=== PATIENT | female | born 1990 | race Caucasian/White ===

== ENCOUNTER 2018-11-21 17:09 | Emergency (ER) | payer OTHER, SELFPAY ==
[2018-11-21 17:12] VITALS: BP 140/92; PULSE 119; RESP 17; TEMP 37.2; O2SAT 99
--- NOTE | 2018-11-21 17:15 | ED.MEDCLEAR ---
HPI - Medical Clearance General Chief complaint: Shortness of Breath/Dyspnea Stated complaint: replace inhaler,out of medication Time Seen by Provider: 11/21/18 17:10 Source: patient Mode of arrival: ambulatory Limitations: no limitations History of Present Illness HPI Narrative: 28-year-old female former smoker with history of asthma presents to the emergency department because she took her last puff of scheduled albuterol just prior to arrival and she has no other inhalers. She does not have a local doctor and wants a refill. She denies any ongoing symptoms. She has no fever no chills wheezing or other symptoms. Reason for Medical Clearance: medical condition Compliant with Home Medications: Yes Associated Symptoms: denies other symptoms Treatments Prior to Arrival: none Home Medications Medication Instructions Recorded Confirmed Fexofenadine Hydrochloride 30 mg PO QDAY #0 03/06/13 (JUAQUIN~) albuterol sulfate [Ventolin HFA] #0 11/13/17 Previous Rx's Medication Instructions Recorded albuterol sulfate [Ventolin HFA] 0 puff INH Q4HP PRN #1 ea 11/14/17 prednisone 40 mg PO Q DAY 4 Days #0 tab 11/14/17 albuterol sulfate 1 puff INHALATION Q4-6H PRN #8 gram 11/21/18 Allergies Allergy/AdvReac Type Severity Reaction Status Date / Time [place] And Derivatives Allergy Unknown Unverified 11/19/17 12:25 [CITRUS AND DERIVATIVES] peanut [PEANUT] Allergy Unknown Unverified 11/19/17 12:25 Review of Systems Constitutional Denies chills, Denies fever(s), Denies lethargy and Denies weakness Eyes Denies change in vision, Denies eye discharge, Denies irritation and Denies loss of vision ENT Ears, Nose, Mouth, and Throat: Denies change in voice, Denies neck pain and Denies sore throat Cardiovascular Denies chest pain, Denies irregular heart rhythm, Denies lightheadedness, Denies palpitations, Denies dyspnea, Denies dyspnea on exertion and Denies orthopnea Respiratory Denies cough, Denies dyspnea, Denies dyspnea on exertion and Denies wheezing Gastrointestinal Gastrointestinal: Denies abdominal pain, Denies change in bowel habits, Denies diarrhea, Denies nausea and Denies vomiting Genitourinary Denies hematuria, Denies flank pain, Denies urinary incontinence and Denies urinary urgency Musculoskeletal Denies neck pain Integumentary/Breasts Denies pruritus, Denies erythema, Denies rash and Denies wounds Neurologic Denies confusion, Denies loss of vision and Denies weakness Psychiatric Denies anxiety, Denies confusion, Denies depression, Denies homicidal ideation and Denies suicidal ideation Endocrine Denies palpitations Hematologic/Lymphatic Denies easy bruising Allergic/Immunologic Denies wheezing PFSH Social History Smoking Status: Never smoker Social History Smoking Status: Never smoker Exam Narrative Exam Narrative: GEN: AOx3 and in mild distress EYES: Pupils are equal, round, and reactive to light and accommodation. Extraoccular muscles are intact bilaterally. There is no subconjunctival hemorrhage or exudate. CHEST: Lungs are clear to auscultation bilaterally and free of wheezes, rales, or rhonchi. Heart rate is regular rhythm, there are no murmurs, clicks, rubs, or gallops. There is no chest wall tenderness. ABD: Abdomen is soft and nontender. There is no guarding or rebound. Bowel sounds are normal in all 4 quadrants. There is no mass or organomegaly. EXT: Full painless ROM of all extremities with no loss of sensation or strength. SKIN: Warm, pink, and dry. No erythema or rash Initial Vital Signs Initial Vital Signs: Vital Signs Temperature 99 F 11/21/18 17:12 Pulse Rate 119 H 11/21/18 17:12 Respiratory Rate 17 11/21/18 17:12 Blood Pressure 140/92 H 11/21/18 17:12 Pulse Oximetry 99 11/21/18 17:12 Discharge Plan Departure Patient Disposition: Home Clinical Impression: Encounter for medication refill, Asthma Discharge Date/Time: 11/21/18 17:20 Interventions: ED Discharge Assessment Last Done: 11/21/18 17:20 Instructions: Asthma -- Adult Activity Restrictions/Additional Instructions: *You have been diagnosed with [medication refill, asthma ] *What to do: *Take medications as directed *Follow up with your primary care provider in 2-3 days, call for an appointment. Let them know you were seen in the Emergency Department and that we ask that you be seen in follow up *Return to ER if you should have any new, worsening or concerning symptoms Prescriptions: New albuterol sulfate 90 mcg/actuation HFA aerosol inhaler 1 puff INHALATION Q4-6H PRN (Reason: bronchospasm) Qty: 8 RF: 0 No Action Fexofenadine Hydrochloride (JUAQUIN~) 30 mg PO QDAY Qty: 0 RF: 0 albuterol sulfate [Ventolin HFA] 90 MCG/PUFF HFA aerosol inhaler Qty: 0 RF: 0 prednisone 20 MG tablet 40 mg PO Q DAY 4 Days Qty: 0 RF: 0 albuterol sulfate [Ventolin HFA] 90 MCG/PUFF HFA aerosol inhaler INH Q4HP PRNQty: 1 RF: 0
--- NOTE | 2018-11-21 17:31 | PC.NURSE ---
Defer to MD assessment
== END 2018-11-21 17:20 | disposition home or self-care (01) ==
LOC: ED 17:28
PROVIDERS: Emergency Provider Emergency Medicine
DX: J45.909 Unspecified asthma, uncomplicated (principal); Z76.0 Encounter for issue of repeat prescription
CPT/HCPCS: 99282; 99283

== ENCOUNTER 2020-01-18 18:00 | Emergency (ER) | payer OTHER, SELFPAY ==
[2020-01-18 18:06] VITALS: BP 128/88; PULSE 94; RESP 22; O2SAT 99
[2020-01-18] MEDS: ONDANSETRON 4 MG/2 ML INJ IV (18:58)
[2020-01-18] MEDS: PANTOPRAZOLE 40 MG VIAL IV (18:59)
[2020-01-18] MEDS: SODIUM CHLORIDE 0.9% 1,000 ML 1000 ML IV (18:59)
[2020-01-18 19:01] LABS: Add Manual Diff / Slide Review NO; Basophils Absolute Auto 0 /uL (0-100); Basophils Percent Auto 0.6 % (0-2); Eosinophils Absolute Auto 100 /uL (0-450); Eosinophils Percent Auto 2.8 % (2-4); Hematocrit 41.4 % (36-46); Hemoglobin 15.2 g/dL (12.0-16.0); Lymphocytes Absolute Auto 1400 /uL (1100-4500); Lymphocytes Percent Auto 25.9 % (25-40); Mean Corpuscular HGB Conc 36.7 % (30-36); Mean Corpuscular Hemoglobin 37.5 PG (26-34); Monocytes Absolute Auto 600 /uL (0-900); Monocytes Percent Auto 11.5 % (3-14); Neutrophils Absolute Auto 3200 /uL (1500-7000); Neutrophils Percent Auto 59.2 % (50-75); Platelet Count 162 X10^3/uL (150-400); Red Blood Cell Count 4.06 X10^6/uL (4.0-5.2); White Blood Cell Count 5.4 X10^3/uL (4.5-11.0)
[2020-01-18 19:09] LABS: Alanine Aminotransferase 85 IU/L (<35); Albumin 4.1 g/dL (3.5-5.0); Albumin Globulin Ratio 1.5 (1.0-2.8); Alkaline Phosphatase 84 U/L (38-126); Aspartate Aminotransferase 146 IU/L (14-36); BUN Creatinine Ratio 9.2 (6-22); Bilirubin Total 3.6 mg/dL (0.2-1.3); Blood Urea Nitrogen 8 mg/dL (7-17); Calcium 9.3 mg/dL (8.4-10.2); Carbon Dioxide 29 mmol/L (22-32); Chloride 98 mmol/L (98-107); Estimated Glomerular Filt Rate > 60.0 mL/min (>60); Globulin 2.7 g/dL (1.7-4.1); Glucose 99 mg/dL (70-100); HEMOLYSIS 15 (0-50); Lipase 74 U/L (23-300); Potassium 3.5 mmol/L (3.4-5.1); Sodium 134 mmol/L (137-145); Total Protein 6.8 g/dL (6.3-8.2)
--- NOTE | 2020-01-18 19:15 | DI.US.S_ITS ---
PROCEDURE: US ABDOMEN LIMITED INDICATIONS: ABNORMAL LFTS; N/V TECHNIQUE: Real-time scanning was performed of the abdominal and retroperitoneal organs, with image documentation. COMPARISON: None. FINDINGS: Liver: There is minimal prominence of the liver size. The liver demonstrates diffusely increased echotexture without focal abnormalities consistent with chronic hepatocellular disease/hepatic steatosis. Gallbladder: Gallbladder is normal in sonographic appearance without gallstones, gallbladder wall thickening, pericholecystic fluid, or abnormal sonographic Le's. Biliary ducts: Intrahepatic bile ducts are non-dilated. Extrahepatic bile duct caliber measures 3 mm. Normal is 6-7 mm or less in diameter, or 10 mm or less post-cholecystectomy. Miscellaneous: No free abdominal fluid. IMPRESSION: 1. The liver demonstrates diffusely increased echotexture without focal abnormalities consistent with chronic hepatocellular disease/hepatic steatosis. Findings may explain clinical history of elevated LFTs. 2. No sonographic evidence for acute cholecystitis or cholelithiasis. Dictated by: Willis Lin M.D. on 01/18/2020 at 21:05 Approved by: Willis Lin M.D. on 01/18/2020 at 21:08
[2020-01-18 20:00] VITALS: BP 128/83; PULSE 88; RESP 16; O2SAT 100
--- NOTE | 2020-01-18 20:16 | ED.NAVMDI ---
HPI - Nausea/Vomiting/Diarrhea <ARACELI Abbasi - Last Filed: 01/18/20 21:49> General Chief complaint: Nausea/Vomiting/Diarrhea Stated complaint: STOMACH PROBLEMS Time Seen by Provider: 01/18/20 18:10 Source: patient Mode of arrival: Ambulatory Limitations: no limitations History of Present Illness HPI Narrative: This is a 29-year-old female, nonsmoker, who presents to ED with significant other with chief complain of 3 day duration of nausea and vomiting with decreased oral intake. Patient reports no appetite and unable to keep it down solid foods or liquids due to nausea and vomiting with hot feeling in her stomach. Patient denies abdominal pain, blood in her vomit or stool, or dark stool. Patient states last vomit was 8:00 a.m. today and she had taken some Gatorade in the car on the way to ED. patient has history of ruptured esophagus from forceful vomiting in the past. Patient also reports some loose stool for last few days with dark green color. Reports about 5 loose stools in 24 hour period. She felt chills only after throwing up and occasional hot flashes and contributes this to her new medication Sertraline. Patient denies urinary symptoms. She states she smokes pot daily and drinks 3-4 alcohol beverages daily ([employer] hard cider) but does not use other recreational drugs. She is currently taking sertraline daily. 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 Patient denies chest pain, dizziness, breathing difficulty, short of breath, sore throat, rhinorrhea. Related Data Home Medications Medication Instructions Recorded Confirmed Fexofenadine Hydrochloride 30 mg PO QDAY #0 03/06/13 (JUAQUIN~) albuterol sulfate [Ventolin HFA] #0 11/13/17 Previous Rx's Medication Instructions Recorded albuterol sulfate [Ventolin HFA] 0 puff INH Q4HP PRN #1 ea 11/14/17 prednisone 40 mg PO Q DAY 4 Days #0 tab 11/14/17 albuterol sulfate 1 puff INHALATION Q4-6H PRN #8 gram 11/21/18 albuterol sulfate 2 inhalation INHALATION Q4-6H PRN 01/18/20 #1 each Allergies Allergy/AdvReac Type Severity Reaction Status Date / Time [place] And Derivatives Allergy Unknown Unverified 11/19/17 12:25 [CITRUS AND DERIVATIVES] peanut [PEANUT] Allergy Unknown Unverified 11/19/17 12:25 Review of Systems <ARACELI Abbasi - Last Filed: 01/18/20 21:49> Review of Systems Narrative: General: Denies fever, (+) hot flashes, (+) chills only after vomting, fatigue, malaise, sweats. HEENT: Denies sinus pain, ear pain, sore throat, difficulty swallowing, dizziness. Respiratory: Denies dyspnea, cough, wheezing, hemoptysis, sputum. Cardiovascular: Denies chest pain, palpitations, orthopnea, edema. Gastrointestinal: See HPI : Denies dysuria, frequency, incontinence, hematuria, urinary retention. Musculoskeletal: Denies weakness, joint pain or bony pain. Skin: Denies rash, skin lesions, or other. Neurologic: Denies weakness, headache, numbness, change in speech, confusion, seizures, incoordination. Psychiatric: No concerning psychosocial issues. 12-point review of systems is negative except for those stated above. Patient History <ARACELI Abbasi - Last Filed: 01/18/20 21:49> Social History Smoking Status: Never smoker Smoking Status: Never smoker alcohol intake frequency: 3 or more drinks per day Substance Use Type: marijuana Exam <ARACELI Abbasi - Last Filed: 01/18/20 21:49> Narrative Exam Narrative: GEN: Alert, oriented x 3, well appearing and nourished, and in no acute distress. Head: Normal cephalic, atraumatic. No scalp or temporal tenderness, palpable mass or rash. EYES: Pupils are equal, round, and reactive to light and accommodation. Extraocular muscles are intact bilaterally. There is no subconjunctival hemorrhage, exudate and sclera non-icteric. ENT: Bilateral auditory canals and tympanic membranes clear. Hearing grossly intact. Nose without bleeding, purulent discharge or deviation. Facial sinuses nontender to palpate. Mucous membrane moist, no mucosal lesion. Throat without erythema, tonsillar hypertrophy or exudate. Uvula in midline, airway patent. Neck: Trachea in midline. No JVD, non-tender without lymphadenopathy. No masses or thyroid megaly. Supple, non-tender and no meningeal signs. CARDIAC: Normal regular rate and rhythm without murmurs, gallops, or rubs. No chest wall tenderness. No peripheral edema, cyanosis or pallor. Capillary refill is less than 2 seconds. RESPIRATORY: Lungs are clear to auscultate bilaterally. No cough, wheezes, rales, or rhonchi. No stridor, respiratory distress, increase work of breathing, or accessary muscle used. ABD: Abdomen soft, nontender and non-distended. No guarding or rebound tenderness to palpate. Bowel sounds are normal in all 4 quadrants. There is no palpable masses or organomegaly. EXT: Full painless ROM of all extremities with no loss of sensation, strength, effusion or edema. SKIN: Warm, dry, normal color for patient. No erythema, lesions or rash over visible areas. BACK: Nontender without deformity or crepitance. No flank tenderness. NEUROLOGICAL: Alert and oriented to place, time and person. Sensation and motor function intact bilaterally. No facial droops, dysphasia. PSYCHIATRIC: Good judgement and reason, without hallucinations, abnormal affect or abnormal behaviors during the examination. Patient is not suicidal. Initial Vital Signs Initial Vital Signs: Vital Signs Pulse Rate 94 H 01/18/20 18:06 Respiratory Rate 22 01/18/20 18:06 Blood Pressure 128/88 01/18/20 18:06 Pulse Oximetry 99 01/18/20 18:06 <Carlitos Morales DO - Last Filed: 01/18/20 23:17> Initial Vital Signs Initial Vital Signs: Vital Signs Pulse Rate 94 H 01/18/20 18:06 Respiratory Rate 22 01/18/20 18:06 Blood Pressure 128/88 01/18/20 18:06 Pulse Oximetry 99 01/18/20 18:06 Scores <ARACELI Abbasi - Last Filed: 01/18/20 21:49> GCS [place] coma scale eye opening: Spontaneous [place] coma scale verbal response: Orientated [place] coma scale motor response: Obey commands [place] coma scale total score: 15 Course <ARACELI Abbasi - Last Filed: 01/18/20 21:49> Orders Ordered: ED Orders 01/18/20 18:52 Complete Blood Count AUTO DIFF Stat Comprehensive Metabolic Panel Stat Lipase Stat 01/18/20 19:15 US abdomen limited Stat Discontinued Medications Sodium Chloride (Normal Saline 0.9%) 1,000 mls @ 1,000 mls/hr IV BOLUS ONE Stop: 01/18/20 19:28 Last Infusion: 01/18/20 21:16 Dose: 0 mls/hr Documented by: Admin: 01/18/20 18:59 Dose: 1,000 mls/hr Documented by: CARLOS A Ondansetron HCl (Zofran) 4 mg IV NOW ONE Stop: 01/18/20 18:30 Last Admin: 01/18/20 18:58 Dose: 4 mg Documented by: CARLOS A Ondansetron HCl (Zofran Odt Prepack) 1 bottle MISC SEEINSTR ONE Stop: 01/18/20 21:25 Last Admin: 01/18/20 21:32 Dose: 1 bottle Documented by: MARYCHUY Pantoprazole Sodium (Protonix) 40 mg IV NOW ONE Stop: 01/18/20 18:30 Last Admin: 01/18/20 18:59 Dose: 40 mg Documented by: CARLOS A Vital Signs Vital signs: Vital Signs - 8 hr 01/18/20 18:06 01/18/20 20:00 Pulse Rate 94 H 88 Respiratory Rate 22 16 Blood Pressure 128/88 Blood Pressure [Left Arm] 128/83 Pulse Oximetry 99 100 <Carlitos Morales DO - Last Filed: 01/18/20 23:17> Orders Ordered: ED Orders 01/18/20 18:52 Complete Blood Count AUTO DIFF Stat Comprehensive Metabolic Panel Stat Lipase Stat 01/18/20 19:15 US abdomen limited Stat Discontinued Medications Sodium Chloride (Normal Saline 0.9%) 1,000 mls @ 1,000 mls/hr IV BOLUS ONE Stop: 01/18/20 19:28 Last Infusion: 01/18/20 21:16 Dose: 0 mls/hr Documented by: Admin: 01/18/20 18:59 Dose: 1,000 mls/hr Documented by: CARLOS A Ondansetron HCl (Zofran) 4 mg IV NOW ONE Stop: 01/18/20 18:30 Last Admin: 01/18/20 18:58 Dose: 4 mg Documented by: CARLOS A Ondansetron HCl (Zofran Odt Prepack) 1 bottle MISC SEEINSTR ONE Stop: 01/18/20 21:25 Last Admin: 01/18/20 21:32 Dose: 1 bottle Documented by: MARYCHUY Pantoprazole Sodium (Protonix) 40 mg IV NOW ONE Stop: 01/18/20 18:30 Last Admin: 01/18/20 18:59 Dose: 40 mg Documented by: CARLOS A Vital Signs Vital signs: Vital Signs - 8 hr 01/18/20 18:06 01/18/20 20:00 Pulse Rate 94 H 88 Respiratory Rate 22 16 Blood Pressure 128/88 Blood Pressure [Left Arm] 128/83 Pulse Oximetry 99 100 MDM - Nausea/Vomiting/Diarrhea <Lenny Samantha-ARACELI Campbell - Last Filed: 01/18/20 21:49> Differential Diagnosis Differential diagnosis: Likely gastroenteritis, dehydration and other (Covid 19, electrolytes imblance) Medical Records Attestation: I reviewed the patient's medical records. Lab Data Attestation: I reviewed the patient's lab results. Result diagrams: 01/18/20 18:52 01/18/20 18:52 Labs: Lab Results 01/18/20 01/18/20 Range/Units 18:52 18:52 WBC 5.4 (4.5-11.0) X10^3/uL RBC 4.06 (4.0-5.2) X10^6/uL Hgb 15.2 (12.0-16.0) g/dL Hct 41.4 (36-46) % MCV 102.0 H (80-100) fL MCH 37.5 H (26-34) PG MCHC 36.7 H (30-36) % RDW 13.0 (11.6-14.8) % Plt Count 162 (150-400) X10^3/uL Neut % (Auto) 59.2 (50-75) % Lymph % (Auto) 25.9 (25-40) % [place] % (Auto) 11.5 (3-14) % Eos % (Auto) 2.8 (2-4) % Baso % (Auto) 0.6 (0-2) % Neut # (Auto) 3200 (1287-4257) /uL Lymph # (Auto) 1400 (6111-1939) /uL [place] # (Auto) 600 (0-900) /uL Eos # (Auto) 100 (0-450) /uL Baso # (Auto) 0 (0-100) /uL Sodium 134 L (137-145) mmol/L Potassium 3.5 (3.4-5.1) mmol/L Chloride 98 (98-107) mmol/L Carbon Dioxide 29 (22-32) mmol/L BUN 8 (7-17) mg/dL Creatinine 0.87 (0.52-1.04) mg/dL Estimated GFR > 60.0 (>60) mL/min BUN/Creatinine Ratio 9.2 (6-22) Glucose 99 (70-100) mg/dL Calcium 9.3 (8.4-10.2) mg/dL Total Bilirubin 3.6 H (0.2-1.3) mg/dL AST 146 H (14-36) IU/L ALT 85 H (<35) IU/L Alkaline Phosphatase 84 (38-126) U/L Total Protein 6.8 (6.3-8.2) g/dL Albumin 4.1 (3.5-5.0) g/dL Globulin 2.7 (1.7-4.1) g/dL Albumin/Globulin Ratio 1.5 (1.0-2.8) Lipase 74 (23-300) U/L Point of Care Testing Test Results Negative Urine Dip Bedside Urine Glucose Negative Bedside Urine Bilirubin - Negative Bedside Urine Ketone - Negative Urine Specific [place] 1.010 Bedside Urine Occult Blood - Negative Bedside Urine pH 6.5 Bedside Urine Protein - Negative Bedside Urine Urobilinogen - Negative Bedside Urine Nitrite - Negative Bedside Urine Leukocytes - Negative Esterase Imaging Data US - abdomen: Radiologist's Impression: [address] [id number] Ultrasound Report Signed Patient: Rosemarie Crowder LMR#: [id number] : 1990Acct:[id number] Age/Sex: 29 FDate of Service: 01/18/20 Loc: ED Accession Number: [id number] Procedure: US abdomen limited Ordering Provider: Lenny Lombardi PROCEDURE: US ABDOMEN LIMITED INDICATIONS: ABNORMAL LFTS; N/V TECHNIQUE: Real-time scanning was performed of the abdominal and retroperitoneal organs, with image documentation. COMPARISON: None. FINDINGS: Liver: There is minimal prominence of the liver size. The liver demonstrates diffusely increased echotexture without focal abnormalities consistent with chronic hepatocellular disease/hepatic steatosis. Gallbladder: Gallbladder is normal in sonographic appearance without gallstones, gallbladder wall thickening, pericholecystic fluid, or abnormal sonographic Le's. Biliary ducts: Intrahepatic bile ducts are non-dilated. Extrahepatic bile duct caliber measures 3 mm. Normal is 6-7 mm or less in diameter, or 10 mm or less post-cholecystectomy. Miscellaneous: No free abdominal fluid. IMPRESSION: 1. The liver demonstrates diffusely increased echotexture without focal abnormalities consistent with chronic hepatocellular disease/hepatic steatosis. Findings may explain clinical history of elevated LFTs. 2. No sonographic evidence for acute cholecystitis or cholelithiasis. Dictated by: Willis Lin M.D. on 01/18/2020 at 21:05 Approved by: Willis Lin M.D. on 01/18/2020 at 21:08 MDM Narrative Medical decision making narrative: Patient was able to void after 1 L IV hydration and medicated with Zofran for nausea and vomiting. UA was negative for infection. Urine was negative. There is no leukocytosis. Mild hyponatremia of 134. Normal potassium of 3.5 and no signs of acute dehydration. However, total bilirubin was elevated to 3.6 from previous visit 2.2 in August 2017. AST 146 and ALT 85 which was also elevated from previous visit which were normal. Abdominal exam was unremarkable. Patient states she drinks alcohol beverages 3-4 servings per day. [place] US that diffusely increased echotexture without focal abnormalities which is consistent with hepatic steatosis or chronic hepatocellular disease. There is no evidence of acute cholecystitis or cholelithiasis. Patient advised to avoid fatty food or alcohol drinks and to follow-up with her primary care physician. Return precautions were discussed with patient and discharged to home with prepack Zofran for as needed use. Patient was able to tolerate ice chips without vomiting while in ED. Covid swab is pending and advised self quarantine until she receives a phone call from us with negative results. Work off note provided. Patient verbalized understanding and in agreement with the treatment plan. Patient requesting albuterol inhaler that she uses as as needed for asthma. The prescription has been transmitted to [facility] in [place]. <Carlitos Morales, - Last Filed: 01/18/20 23:17> Lab Data Labs: Lab Results 01/18/20 01/18/20 Range/Units 18:52 18:52 WBC 5.4 (4.5-11.0) X10^3/uL RBC 4.06 (4.0-5.2) X10^6/uL Hgb 15.2 (12.0-16.0) g/dL Hct 41.4 (36-46) % MCV 102.0 H (80-100) fL MCH 37.5 H (26-34) PG MCHC 36.7 H (30-36) % RDW 13.0 (11.6-14.8) % Plt Count 162 (150-400) X10^3/uL Neut % (Auto) 59.2 (50-75) % Lymph % (Auto) 25.9 (25-40) % [place] % (Auto) 11.5 (3-14) % Eos % (Auto) 2.8 (2-4) % Baso % (Auto) 0.6 (0-2) % Neut # (Auto) 3200 (0896-4575) /uL Lymph # (Auto) 1400 (8558-9055) /uL [place] # (Auto) 600 (0-900) /uL Eos # (Auto) 100 (0-450) /uL Baso # (Auto) 0 (0-100) /uL Sodium 134 L (137-145) mmol/L Potassium 3.5 (3.4-5.1) mmol/L Chloride 98 (98-107) mmol/L Carbon Dioxide 29 (22-32) mmol/L BUN 8 (7-17) mg/dL Creatinine 0.87 (0.52-1.04) mg/dL Estimated GFR > 60.0 (>60) mL/min BUN/Creatinine Ratio 9.2 (6-22) Glucose 99 (70-100) mg/dL Calcium 9.3 (8.4-10.2) mg/dL Total Bilirubin 3.6 H (0.2-1.3) mg/dL AST 146 H (14-36) IU/L ALT 85 H (<35) IU/L Alkaline Phosphatase 84 (38-126) U/L Total Protein 6.8 (6.3-8.2) g/dL Albumin 4.1 (3.5-5.0) g/dL Globulin 2.7 (1.7-4.1) g/dL Albumin/Globulin Ratio 1.5 (1.0-2.8) Lipase 74 (23-300) U/L Point of Care Testing Test Results Negative Urine Dip Bedside Urine Glucose Negative Bedside Urine Bilirubin - Negative Bedside Urine Ketone - Negative Urine Specific [place] 1.010 Bedside Urine Occult Blood - Negative Bedside Urine pH 6.5 Bedside Urine Protein - Negative Bedside Urine Urobilinogen - Negative Bedside Urine Nitrite - Negative Bedside Urine Leukocytes - Negative Esterase Discharge Plan Departure Patient Disposition: Home Clinical Impression: Elevated liver function tests, Elevated bilirubin, Fatty infiltration of liver, Medication refill Nausea & vomiting Qualifiers: Vomiting type: unspecified Vomiting Intractability: non-intractable Qualified Code(s): R11.2 - Nausea with vomiting, unspecified Discharge Date/Time: 01/18/20 21:40 Instructions: DI for Vomiting -- Adult, DI for Nonalcoholic Fatty Liver Disease Activity Restrictions/Additional Instructions: You have been diagnosed with [gastroenteritis with nausea/vomiting and loose stools. You will receive a phone call from us with Covid test result in 2-4 days. Until then, please self quarantine at home with good cough and hand hygiene. CBC test was unremarkable. Chemistry test was unremarkable. There was elevation in total bilirubin of 3.6 today with elevated liver function test of AST of 146 and ALT of 85. Abdominal ultrasound test indicates chronic hepatocellular disease/hepatic steatosis (fatty liver) without evidence of acute cholecystitis or cholelithiasis. Please avoid fatty food and alcohol beverages. Please follow-up with your primary care doctor for repeat test on days.]. What to do: *Take your medications as directed. You can take Zofran that has been provided to you as needed for nausea and vomiting. Please hydrate yourself bit smaller liquids frequently and advanced diet to bland when you are able to tolerate liquids for next 12-24 hours. *Follow up with your primary care provider in 2-3 days, call for an appointment. Let them know you were seen in the ED and that we asked you to be seen in follow up. *Return to ED if you have any new, worsening, or concerning symptoms, such as [chest/abdominal pain, breathing difficulty, unable to tolerate fluids, fever, blood in your vomit or stool, jaundice or any acute concerns]. Prescriptions: New albuterol sulfate 90 mcg/actuation aero powdr breath act w/sensor 2 inhalation INHALATION Q4-6H PRN (Reason: shortness of breath or wheezing) Qty: 1 RF: 0 No Action Fexofenadine Hydrochloride (JUAQUIN~) 30 mg PO QDAY Qty: 0 RF: 0 albuterol sulfate [Ventolin HFA] 90 MCG/PUFF HFA aerosol inhaler Qty: 0 RF: 0 prednisone 20 MG tablet 40 mg PO Q DAY 4 Days Qty: 0 RF: 0 albuterol sulfate [Ventolin HFA] 90 MCG/PUFF HFA aerosol inhaler 0 puff INH Q4HP PRNQty: 1 RF: 0 albuterol sulfate 90 mcg/actuation HFA aerosol inhaler 1 puff INHALATION Q4-6H PRN (Reason: bronchospasm) Qty: 8 RF: 0 Referrals: Sherley Morgan PA-C [Non-Staff] - Stand Alone Forms: Work Release Note <Carlitos Morales DO - Last Filed: 01/18/20 23:17> Cosign ED Attending Cosignature Attestation: I was immediately available in the department for consultation. This documentation has been reviewed and I agree with assessment and plan. Supervised by Carlitos Morales DO
[2020-01-18] MEDS: ONDANSETRON 4 MG ODT PREPACK 1 BOTTLE MISC (21:32)
[2020-01-19 23:32] LABS: COVID19 Sendout Not Detected (Not Detect)
== END 2020-01-18 21:40 | disposition home or self-care (01) ==
PROVIDERS: Emergency Provider Nurse Practitioner Family
DX: R79.89 Other specified abnormal findings of blood chemistry (principal); K76.0 Fatty (change of) liver, not elsewhere classified; Z76.0 Encounter for issue of repeat prescription; R11.2 Nausea with vomiting, unspecified
CPT/HCPCS: 36415; 76705; 80053; 81003; 81025; 83690; 85025; 87635; 96361; 96374; 96375; 99284; C9113; J2405

== ENCOUNTER 2021-02-04 13:22 | Emergency (ER) | payer OTHER, SELFPAY ==
[2021-02-04 13:31] VITALS: PULSE 81; RESP 20; TEMP 36.5; O2SAT 100
[2021-02-04 13:33] VITALS: BP 133/77
[2021-02-04 16:34] LABS: Bacteria Urine None Seen; RBC Urine None Seen (0-5/HPF)
--- NOTE | 2021-02-04 16:39 | PC.NURSE ---
couple days of right lower back pain. Worse with movement, bending. Patient works for [employer] lots of repetitive lifting. Denies urinary symptoms, denies loss of bowel or bladder function. No tingling down legs. Reports decrease appetite think from the heat
[2021-02-04 16:52] LABS: Amorphous Sediment Urine 1+; Calcium Oxalate Crystals Urine Many; Culture Indicated Urine Cult Not Indicated; Mucus Urine 1+ (Negative); Squamous Epithelial Cell Urine 0-1 /HPF (0-5/HPF); WBC Urine 0-1/HPF (0-5/HPF)
--- NOTE | 2021-02-04 18:30 | ED.BACK ---
HPI - Back Pain/Injury General Chief Complaint: Back Pain/Injury Stated Complaint: back pain Time Seen by Provider: 02/04/21 18:02 Source: patient Mode of arrival: Ambulatory Limitations: no limitations History of Present Illness HPI Narrative: Patient is a 30-year-old female here for evaluation right lower back discomfort. Stated that it started a couple days ago after a period of time at work where she was lifting and twisting heavy objects. There is no one specific incident that caused her symptoms to occur. It is worse with movement somewhat worse with palpation. Related Data Home Medications Medication Instructions Recorded Confirmed Fexofenadine Hydrochloride 30 mg PO QDAY #0 03/06/13 (JUAQUIN~) albuterol sulfate [Ventolin HFA] #0 11/13/17 Previous Rx's Medication Instructions Recorded albuterol sulfate [Ventolin HFA] 0 puff INH Q4HP PRN #1 ea 11/14/17 prednisone 40 mg PO Q DAY 4 Days #0 tab 11/14/17 albuterol sulfate 1 puff INHALATION Q4-6H PRN #8 gram 11/21/18 albuterol sulfate 2 inhalation INHALATION Q4-6H PRN 01/18/20 #1 each Allergies Allergy/AdvReac Type Severity Reaction Status Date / Time [place] And Derivatives Allergy Unknown Unverified 11/19/17 12:25 [CITRUS AND DERIVATIVES] peanut [PEANUT] Allergy Unknown Unverified 11/19/17 12:25 Review of Systems Constitutional Constitutional: Reports system reviewed and no additional complaints, except as documented Cardiovascular Cardiovascular: Reports system reviewed and no additional complaints, except as documented Respiratory Respiratory: Reports system reviewed and no additional complaints, except as documented Gastrointestinal Gastrointestinal: Reports system reviewed and no additional complaints, except as documented Genitourinary Genitourinary: Reports system reviewed and no additional complaints, except as documented Musculoskeletal Musculoskeletal: Reports back pain Integumentary/Breasts Skin/Breast: Reports system reviewed and no additional complaints, except as documented Neurologic Neurologic: Denies paresthesias Psychiatric Psychiatric: Reports system reviewed and no additional complaints, except as documented Hematologic/Lymphatic On Anticoagulants: No Allergic/Immunologic Allergic/Immunologic: Reports system reviewed and no additional complaints, except as documented Patient History Medical History Asthma exacerbation Upper GI bleeding Social History Smoking Status: Never smoker Smoking Status: Never smoker alcohol intake frequency: 0-2 drinks per day Substance Use Type: marijuana Exam Initial Vital Signs Initial Vital Signs: Vital Signs Temperature 97.7 F 02/04/21 13:31 Pulse Rate 81 02/04/21 13:31 Respiratory Rate 20 02/04/21 13:31 Pulse Oximetry 100 02/04/21 13:31 Const General: cooperative and comfortable Limitations: mental status not altered HENMT Head: normal to inspection and normocephalic Resp Effort & Inspection: normal respiratory effort Cardio Rate: regular rate Back/Spine/Pelvis Thoracic/Lumbar Spine: paraspinal tenderness ( Right-sided lumbar), No thoracic spinal tenderness and No lumbar spinal tenderness Skin Lesions: no lesions Rashes: no rashes Neuro General: patient alert and patient awake Cognition: normal cognition Speech: speech normal Extrem General: capillary refill normal Psych Appearance: grossly normal and well kempt Course Orders Ordered: Discontinued Medications Ketorolac Tromethamine (Ketorolac 30 Mg/Ml Vial) 30 mg IM NOW ONE Stop: 02/04/21 18:31 Last Admin: 02/04/21 18:39 Dose: 30 mg Documented by: BTONER Vital Signs Vital signs: Vital Signs - 8 hr 02/04/21 18:57 Pulse Rate 81 Respiratory Rate 16 Blood Pressure 127/73 Pulse Oximetry 99 MDM - Back Pain/Injury Lab Data Attestation: I reviewed the patient's lab results. Labs: Lab Results 02/04/21 Range/Units 16:30 Urine RBC None seen (0-5/HPF) Urine WBC 0-1/hpf (0-5/HPF) Ur Squamous Epith Cells 0-1 /hpf (0-5/HPF) Calcium Oxalate Crystal Many H Amorphous Sediment 1+ Urine Bacteria None seen (None) Urine Mucus 1+ H (Negative) Ur Culture Indicated? Cult not indicated Urine Dip Bedside Urine Glucose Negative Bedside Urine Bilirubin + 1 Bedside Urine Ketone - Negative Urine Specific [place] 1.030 Bedside Urine Occult Blood - Negative Bedside Urine pH 6.0 Bedside Urine Protein +/- 15 Bedside Urine Urobilinogen +/- 1mg Bedside Urine Nitrite - Negative Bedside Urine Leukocytes - Negative Esterase MDM Narrative Medical decision making narrative: symptoms today are consistent with musculoskeletal paraspinal right-sided lower back discomfort. I do suspect that is related to the movement of heavy objects while at work. No indication for radiologic studies. No indication for surgical consultation. Will treat symptomatically. She was given return precautions. She expressed understanding and agreement. Discharge Plan Departure Patient Disposition: Home Clinical Impression: Back pain Instructions: DI for Low Back Pain Activity Restrictions/Additional Instructions: recommend that you continue with anti-inflammatories such as Motrin or Naprosyn. You can also use Tylenol. You can also try heat in ice and massage. contact your primary provider for follow-up. Return to the emergency department for any new or worsening symptoms Prescriptions: No Action Fexofenadine Hydrochloride (JUAQUIN~) 30 mg PO QDAY Qty: 0 RF: 0 albuterol sulfate [Ventolin HFA] 90 MCG/PUFF HFA aerosol inhaler Qty: 0 RF: 0 prednisone 20 MG tablet 40 mg PO Q DAY 4 Days Qty: 0 RF: 0 albuterol sulfate [Ventolin HFA] 90 MCG/PUFF HFA aerosol inhaler 0 puff INH Q4HP PRNQty: 1 RF: 0 albuterol sulfate 90 mcg/actuation HFA aerosol inhaler 1 puff INHALATION Q4-6H PRN (Reason: bronchospasm) Qty: 8 RF: 0 albuterol sulfate 90 mcg/actuation aero powdr breath act w/sensor 2 inhalation INHALATION Q4-6H PRN (Reason: shortness of breath or wheezing) Qty: 1 RF: 0 Stand Alone Forms: Work Release Note
[2021-02-04] MEDS: KETOROLAC 30 MG/ML VIAL IM (18:39)
[2021-02-04 18:57] VITALS: BP 127/73; PULSE 81; RESP 16; O2SAT 99
== END 2021-02-04 18:57 | disposition home or self-care (01) ==
PROVIDERS: Emergency Medicine; Emergency Provider Emergency Medicine
DX: M54.5 Low back pain (principal)
CPT/HCPCS: 81003; 81015; 96372; 99283; J1885

== ENCOUNTER 2021-09-30 08:58 | Emergency (ER) | payer OTHER, SELFPAY ==
[2021-09-30] VITALS (7 sets, daily range): BP systolic 129–147; BP diastolic 77–85; PULSE 89–102; RESP 18–21; TEMP 36.4; O2SAT 98–99; BMI 21.6
--- NOTE | 2021-09-30 09:16 | DI.RAD.S_ITS ---
PROCEDURE: XR CHEST 1V INDICATIONS: Short of breath, wheezing TECHNIQUE: One view of the chest was acquired. COMPARISON: [facility], , CHEST 1 VIEW, 08/15/2017, 3:04. FINDINGS: Surgical changes and devices: None. Lungs and pleura: On this semiupright portable chest examination, no large pneumothorax or large pleural effusions are seen. No focal infiltrates are seen. Mediastinum: Mediastinal contours appear normal. Heart size is normal. Bones and chest wall: No suspicious bony lesions. Overlying soft tissues appear unremarkable. IMPRESSION: Portable chest within normal limits. Dictated by: Reginald Bowden M.D. on 09/30/2021 at 8:37 Approved by: Reginald Bowden M.D. on 09/30/2021 at 8:37
[2021-09-30 09:31] LABS: COVID19 -Nasal RAPID Negative (Negative)
--- NOTE | 2021-09-30 10:04 | ED_ITS ---
HPI - SOB/Dyspnea General Chief Complaint: Shortness of Breath/Dyspnea Stated Complaint: trouble breathing Time Seen by Provider: 09/30/21 09:37 Source: patient Mode of arrival: Ambulatory Limitations: no limitations History of Present Illness HPI Narrative: This is a 31-year-old female with known history of asthma who states that she has felt like she had a flare this morning. She did have her inhaler but she d id have a nebulizer she did treatment about 7:00 a.m. in the morning. She states she felt really anxious but it seems to have kicked in now in her shortness of breath, wheezing and tightness has resolved. She did not have any chest pain or pressure. No syncope. No nausea or vomiting. No new con stipation or diarrhea. No new swelling in her extremities. She does have seasonal allergies intense to have flares more frequently this time of year although it is a little early. She is supposed to be on an antihistamine. She is not on any daily steroids or steroid inhalers. She states she had an esophageal tear about 4 years ago from vomiting very forcefully and she took oral medication but did not require any other additional interventions. Patient denies any medication allergies. Occasional tobacco, occasional alcohol, she does dab but denies other illicit. Related Data Home Medications Medication Instructions Recorded Confirmed Fexofenadine Hydrochloride 30 mg PO QDAY #0 03/06/13 (JUAQUIN~) albuterol sulfate 90 mcg/actuation #0 11/13/17 aerosol inhaler (Ventolin HFA) Previous Rx's Medication Instructions Recorded albuterol sulfate 90 mcg/actuation 0 puff INH Q4HP PRN #1 ea 11/14/17 aerosol inhaler (Ventolin HFA) prednisone 20 mg tablet 40 mg PO Q DAY 4 Days #0 tab 11/14/17 albuterol sulfate 90 mcg/actuation 1 puff INHALATION Q4-6H PRN #8 gram 11/21/18 aerosol inhaler albuterol sulfate 90 mcg/actuation 2 inhalation INHALATION Q4-6H PRN 01/18/20 breath activated powder #1 each inhaler,sensor albuterol sulfate 90 mcg/actuation 2 puff INHALATION Q4-6H PRN #8.5 g 09/30/21 aerosol inhaler prednisone 20 mg tablet 40 mg PO DAILY #6 tab 09/30/21 Allergies Allergy/AdvReac Type Severity Reaction Status Date / Time [place] And Derivatives Allergy Unknown Unverified 11/19/17 12:25 [CITRUS AND DERIVATIVES] peanut [PEANUT] Allergy Unknown Unverified 11/19/17 12:25 Review of Systems Review of Systems ROS Unobtainable: All systems reviewed & are unremarkable except as noted in HPI and below Patient History Medical History Asthma exacerbation Upper GI bleeding Social History Smoking Status: Never smoker Smoking Status: Never smoker alcohol intake frequency: 0-2 drinks per day Substance Use Type: marijuana Exam Narrative Exam Narrative: GENERAL: Alert and oriented x three, female in mild distress. HEENT: Head normocephalic, atraumatic, EOMI, pupils reactive, face symmetric, moist mucous membranes NECK: Supple, full range of motion CARDIOVASCULAR: Mild tachycardia regular rate and rhythm without murmurs, rubs or gallops. RESPIRATORY: Breath sounds equal bilaterally, no wheezes rales or rhonchi. Ta chypnea accessory muscle use. Patient speaks in full sentences. ABDOMEN: Soft, nontender. Normoactive bowel sounds all 4 quadrants. No guarding or rebound, rigidity, no mass : No CVA tenderness. EXTREMITIES: Normal range of motion, no edema. Neurovascularly intact NEUROLOGICAL: Cranial nerves II through XII grossly intact. Moving all extremities. Normal gait. SKIN: Warm, dry, no petechiae, no rashes or lesions. Initial Vital Signs Initial Vital Signs: Vital Signs Temperature 97.5 F L 09/30/21 09:00 Pulse Rate 97 H 09/30/21 09:00 Respiratory Rate 18 09/30/21 09:00 Blood Pressure 138/85 09/30/21 09:00 Pulse Oximetry 99 09/30/21 09:00 Course Orders Ordered: ED Orders 09/30/21 09:00 COVID19 -Nasal swab/Pre-Proc Stat 09/30/21 09:13 EKG-12 Lead Stat Measure peak expiratory flow ONCE RT Consult Eval and Treat Now 09/30/21 09:16 XR chest 1V Stat 09/30/21 10:00 Complete Blood Count AUTO DIFF Stat Comprehensive Metabolic Panel Stat Lactate (Lactic Acid) Stat Discontinued Medications Methylprednisolone (Methylprednisolone 125 Mg/2 Ml Vial) 125 mg IV NOW ONE Stop: 09/30/21 10:10 Last Admin: 09/30/21 10:17 Dose: 125 mg Documented by: INOCENTE Reevaluation(s) Reevaluation #1: Patient continues to feel improved Vital Signs Vital signs: Vital Signs - 8 hr 09/30/21 09:00 09/30/21 09:05 09/30/21 09:30 Temperature 97.5 F L Pulse Rate 97 H 102 H 92 H Respiratory Rate 18 20 21 Blood Pressure 138/85 Pulse Oximetry 99 98 98 09/30/21 10:00 09/30/21 10:20 09/30/21 10:30 Temperature Pulse Rate 93 H 94 H 91 H Respiratory Rate 18 20 20 Blood Pressure 147/77 H 134/81 Pulse Oximetry 99 98 98 09/30/21 11:00 Temperature Pulse Rate 89 Respiratory Rate 20 Blood Pressure 129/80 Pulse Oximetry 98 MDM - SOB/Dyspnea Lab Data Result diagrams: 09/30/21 10:00 09/30/21 10:00 Labs: Lab Results 09/30/21 09/30/21 09/30/21 Range/Units 09:00 10:00 10:00 WBC 7.0 (4.5-11.0) X10^3/uL RBC 4.32 (4.0-5.2) X10^6/uL Hgb 15.0 (12.0-16.0) g/dL Hct 42.7 (36-46) % MCV 98.8 (80-100) fL MCH 34.7 H (26-34) PG MCHC 35.1 (30-36) % RDW 13.8 (11.6-14.8) % Plt Count 180 (150-400) X10^3/uL Neut % (Auto) 70.5 (50-75) % Lymph % (Auto) 16.5 L (25-40) % [place] % (Auto) 6.2 (3-14) % Eos % (Auto) 6.3 H (2-4) % Baso % (Auto) 0.5 (0-2) % Neut # (Auto) 4900 (9262-2845) /uL Lymph # (Auto) 1200 (4908-7911) /uL [place] # (Auto) 400 (0-900) /uL Eos # (Auto) 400 (0-450) /uL Baso # (Auto) 0 (0-100) /uL Sodium 138 (137-145) mmol/L Potassium 3.6 (3.4-5.1) mmol/L Chloride 103 (98-107) mmol/L Carbon Dioxide 28 (22-32) mmol/L BUN 7 (7-17) mg/dL Creatinine 0.71 (0.52-1.04) mg/dL Estimated GFR > 60.0 (>60) mL/min BUN/Creatinine Ratio 9.9 (6-22) Glucose 88 (70-100) mg/dL Lactate (0.7-2.1) mmol/L Calcium 9.2 (8.4-10.2) mg/dL Total Bilirubin 2.7 H (0.2-1.3) mg/dL AST 32 (14-36) IU/L ALT 20 (<35) IU/L Alkaline Phosphatase 90 (38-126) U/L Total Protein 7.7 (6.3-8.2) g/dL Albumin 4.7 (3.5-5.0) g/dL Globulin 3.0 (1.7-4.1) g/dL Albumin/Globulin Ratio 1.6 (1.0-2.8) SARS-CoV-2 (PCR) Negative (Negative) 09/30/21 Range/Units 10:00 WBC (4.5-11.0) X10^3/uL RBC (4.0-5.2) X10^6/uL Hgb (12.0-16.0) g/dL Hct (36-46) % MCV (80-100) fL MCH (26-34) PG MCHC (30-36) % RDW (11.6-14.8) % Plt Count (150-400) X10^3/uL Neut % (Auto) (50-75) % Lymph % (Auto) (25-40) % [place] % (Auto) (3-14) % Eos % (Auto) (2-4) % Baso % (Auto) (0-2) % Neut # (Auto) (2703-8905) /uL Lymph # (Auto) (5005-2468) /uL [place] # (Auto) (0-900) /uL Eos # (Auto) (0-450) /uL Baso # (Auto) (0-100) /uL Sodium (137-145) mmol/L Potassium (3.4-5.1) mmol/L Chloride (98-107) mmol/L Carbon Dioxide (22-32) mmol/L BUN (7-17) mg/dL Creatinine (0.52-1.04) mg/dL Estimated GFR (>60) mL/min BUN/Creatinine Ratio (6-22) Glucose (70-100) mg/dL Lactate 1.6 (0.7-2.1) mmol/L Calcium (8.4-10.2) mg/dL Total Bilirubin (0.2-1.3) mg/dL AST (14-36) IU/L ALT (<35) IU/L Alkaline Phosphatase (38-126) U/L Total Protein (6.3-8.2) g/dL Albumin (3.5-5.0) g/dL Globulin (1.7-4.1) g/dL Albumin/Globulin Ratio (1.0-2.8) SARS-CoV-2 (PCR) (Negative) Imaging Data Chest x-ray: Radiologist's Impression: [address] [address] XRay Report Signed Patient: Rosemarie Crowder MR#: [id number] : 1990 Acct:[id number] Age/Sex: 31 / F Date of Service: 09/30/21 Loc: Accession Number: [id number] ?? Procedure: XR chest 1V Ordering Provider: Abeba Webb D.O. PROCEDURE:? XR CHEST 1V ? INDICATIONS:? Short of breath, wheezing ? TECHNIQUE:? One view of the chest was acquired.? ? COMPARISON:? [facility], , CHEST 1 VIEW, 08/15/2017, 3:04. ? FINDINGS:? ? Surgical changes and devices:? None.? ? Lungs and pleura:? On this semiupright portable chest examination, no large pneumothorax or large pleural effusions are seen.? No focal infiltrates are seen.? ? Mediastinum:? Mediastinal contours appear normal.? Heart size is normal.? ? Bones and chest wall:? No suspicious bony lesions.? Overlying soft tissues appear unremarkable.? ? ? IMPRESSION:? ? Portable chest within normal limits. ? ? ? Dictated by: Reginald Bowden M.D. on 09/30/2021 at 8:37 ? ? Approved by: Reginald Bowden M.D. on 09/30/2021 at 8:37? ECG Data Attestation: I personally reviewed and interpreted this ECG as follows: Interpretation: Sinus rhythm rate 95 VT 162, QRS 072, QTC of 467. No acute ST changes noted. MDM Narrative Medical decision making narrative: This is a 31-year-old female comes in with increased shortness of breath she used an albuterol neb at home and seems to have improved after this. She is not wheezy or tight on exam her symptoms have almost completely resolved. Chest x- ray lab work COVID swab were negative. Patient had run out of her albuterol inhaler. She is not persistently on steroids or use a steroid inhaler. She does not have a spacer in this was provided as well as refill albuterol and a short course of oral steroid. She does live with animals that cause her to have allergies that makes her asthma flare, and she typically this time of year has worsening symptoms. Discharge Plan Departure Patient Disposition: Home Clinical Impression: Asthma with exacerbation Instructions: DI for Asthma -- Adult Activity Restrictions/Additional Instructions: Follow-up with physician for recheck. Take oral steroids until gone. Use albuterol 1-2 puffs every 4 hours as needed for wheezing or shortness of breath. Using a spacer will make this much more effective. [facility]cription sent to [facility]. Please return for fevers, increasing chest pain, shortness of breath, passing out, difficulty or work of breathing, wheezing, new swelling in her extremities or other new or concerning symptoms. Prescriptions: New albuterol sulfate 90 mcg/actuation HFA aerosol inhaler 2 puff inhalation Q4-6H PRN (Reason: shortness of breath or wheezing) Qty: 8.5 0RF prednisone 20 mg tablet 40 mg PO DAILY Qty: 6 0RF No Action Fexofenadine Hydrochloride (JUAQUIN~) 30 mg PO QDAY Qty: 0 0RF albuterol sulfate [Ventolin HFA] 90 MCG/PUFF HFA aerosol inhaler Qty: 0 0RF prednisone 20 MG tablet 40 mg PO Q DAY 4 Days Qty: 0 0RF albuterol sulfate [Ventolin HFA] 90 MCG/PUFF HFA aerosol inhaler 0 puff INH Q4HP PRNQty: 1 0RF albuterol sulfate 90 mcg/actuation HFA aerosol inhaler 1 puff INHALATION Q4-6H PRN (Reason: bronchospasm) Qty: 8 0RF albuterol sulfate 90 mcg/actuation aero powdr breath act w/sensor 2 inhalation INHALATION Q4-6H PRN (Reason: shortness of breath or wheezing) Qty: 1 0RF
[2021-09-30 10:10] LABS: Add Manual Diff / Slide Review NO; Basophils Absolute Auto 0 /uL (0-100); Basophils Percent Auto 0.5 % (0-2); Eosinophils Absolute Auto 400 /uL (0-450); Eosinophils Percent Auto 6.3 % (2-4); Hematocrit 42.7 % (36-46); Lymphocytes Absolute Auto 1200 /uL (1100-4500); Lymphocytes Percent Auto 16.5 % (25-40); Mean Corpuscular HGB Conc 35.1 % (30-36); Mean Corpuscular Hemoglobin 34.7 PG (26-34); Mean Corpuscular Volume 98.8 fL (80-100); Monocytes Absolute Auto 400 /uL (0-900); Monocytes Percent Auto 6.2 % (3-14); Neutrophils Absolute Auto 4900 /uL (1500-7000); Neutrophils Percent Auto 70.5 % (50-75); Platelet Count 180 X10^3/uL (150-400); Red Blood Cell Count 4.32 X10^6/uL (4.0-5.2); Red Cell Distribution Width 13.8 % (11.6-14.8)
[2021-09-30] MEDS: methylPREDNISolone 125 MG/2 ML VIAL IV (10:17)
[2021-09-30 10:23] LABS: Alanine Aminotransferase 20 IU/L (<35); Albumin 4.7 g/dL (3.5-5.0); Albumin Globulin Ratio 1.6 (1.0-2.8); Alkaline Phosphatase 90 U/L (38-126); Aspartate Aminotransferase 32 IU/L (14-36); BUN Creatinine Ratio 9.9 (6-22); Bilirubin Total 2.7 mg/dL (0.2-1.3); Blood Urea Nitrogen 7 mg/dL (7-17); Calcium 9.2 mg/dL (8.4-10.2); Carbon Dioxide 28 mmol/L (22-32); Chloride 103 mmol/L (98-107); Estimated Glomerular Filt Rate > 60.0 mL/min (>60); Glucose 88 mg/dL (70-100); HEMOLYSIS < 15 (0-50); Potassium 3.6 mmol/L (3.4-5.1); Sodium 138 mmol/L (137-145); Total Protein 7.7 g/dL (6.3-8.2)
[2021-09-30 10:24] LABS: Lactate (Lactic Acid) 1.6 mmol/L (0.7-2.1)
== END 2021-09-30 11:21 | disposition home or self-care (01) ==
PROVIDERS: Emergency Provider Emergency Medicine
DX: J45.901 Unspecified asthma with (acute) exacerbation (principal); R00.0 Tachycardia, unspecified; Z20.822 Contact with and (suspected) exposure to COVID-19
CPT/HCPCS: 36415; 71045; 80053; 83605; 85025; 87635; 93005; 99284; C9803; J2930

== ENCOUNTER 2021-10-22 18:14 | Emergency (ER) | payer SELFPAY ==
[2021-10-22] VITALS (8 sets, daily range): BP systolic 131–139; BP diastolic 79–91; PULSE 84–93; RESP 17; TEMP 36.6; O2SAT 96–99; BMI 19.8
--- NOTE | 2021-10-22 18:40 | DI.RAD.S_ITS ---
PROCEDURE: XR RIBS LT 2V INDICATIONS: injury TECHNIQUE: To views of the left ribs were acquired. COMPARISON: None. FINDINGS: Surgical changes and devices: None. Bones and chest wall: No fractures or dislocations. No suspicious bony lesions. Overlying soft tissues appear unremarkable. Lungs and pleura: The visualized lung appears clear. No pleural effusions or pneumothorax are visible. IMPRESSION: No acute finding. Dictated by: Madan Grajeda M.D. on 10/22/2021 at 19:39 Approved by: Madan Grajeda M.D. on 10/22/2021 at 19:39
--- NOTE | 2021-10-22 22:54 | ED.CHESTPAIN ---
HPI - Chest Pain General Chief Complaint: Chest Pain Stated Complaint: Pulled Muscle Between Rib and Boob Time Seen by Provider: 10/22/21 22:54 Source: patient Mode of arrival: Ambulatory Limitations: no limitations Limitations: no limitations History of Present Illness HPI narrative: This is a 31 old female who states she pulled a muscle between the ribs and the breast region. Patient states she has done this before several times. Usually last couple weeks. She has never come to the emergency department but has not typically had pain this intense. Patient states she works at [employer] she does a lot a lifting and moving. She thinks that she caused an injury while doing this. She has had increasing persistence and severity of pain on the left side of her chest just underneath the axilla and the lateral soft tissue of the breast. Movement makes it worse particularly rotation. Patient has not had any fevers or chills. No new cold cough or congestive symptoms. She states deep inhalation, coughing, sneezing and movement are exacerbating factors. She denies chest pain elsewhere. No nausea or vomiting. No other GI or urinary symptoms. No swelling in her extremities. She takes sertraline but no other daily medications. Patient is not . major surgeries besides soft vaginal surgery after she vomited too hard and had an injury to the esophagus 4 years ago. She is a nonsmoker, she does drink alcohol, she does use marijuana. Patient has tried ibuprofen at home with minimal improvement. Related Data Home Medications Medication Instructions Recorded Confirmed sertraline 50 mg tablet 50 mg PO DAILY 10/22/21 10/22/21 Previous Rx's Medication Instructions Recorded albuterol sulfate 90 mcg/actuation 1 puff INHALATION Q4-6H PRN #8 gram 11/21/18 aerosol inhaler diazepam 5 mg tablet (Valium) 5 mg PO TID PRN #10 tab 10/22/21 meloxicam 7.5 mg tablet 7.5 mg PO BID PRN #14 tab 10/22/21 Allergies Allergy/AdvReac Type Severity Reaction Status Date / Time Maxatawny And Derivatives Allergy Unknown Verified 10/22/21 18:39 [CITRUS AND DERIVATIVES] peanut [PEANUT] Allergy Unknown Verified 10/22/21 18:39 Review of Systems Review of Systems ROS Unobtainable: All systems reviewed & are unremarkable except as noted in HPI and below Patient History Medical History Asthma exacerbation Upper GI bleeding Social History Smoking Status: Never smoker Smoking Status: Never smoker alcohol intake frequency: 3 or more drinks per day Alcohol type: beer Substance Use Type: marijuana Exam Narrative Exam Narrative: GENERAL: Alert and oriented x three, female in moderate distress. HEENT: Head normocephalic, atraumatic, EOMI, pupils reactive, face symmetric, moist mucous membranes NECK: Supple, full range of motion CARDIOVASCULAR: Regular rate and rhythm without murmurs, rubs or gallops. Patient has reproducible chest pain in the left lateral chest just adjacent to the breast tissue. There is no mass, fluctuance, warmth or erythema. Patient does have tenderness over the soft tissue and muscle. There is no distinct bony point tenderness. RESPIRATORY: Breath sounds equal bilaterally, no wheezes rales or rhonchi. No tachypnea accessory muscle use. ABDOMEN: Soft, nontender. Normoactive bowel sounds all 4 quadrants. No guarding or rebound, rigidity, no mass : No CVA tenderness EXTREMITIES: Normal range of motion but patient is clearly more uncomfortable with rotation of the chest wall. No clubbing or edema. Neurovascularly intact NEUROLOGICAL: Cranial nerves II through XII grossly intact. Moving all extremities SKIN: Warm, dry, no petechiae, no rashes or lesions, no ecchymosis. No vesicles. Initial Vital Signs Initial Vital Signs: Vital Signs Temperature 98 F 10/22/21 18:35 Pulse Rate 89 10/22/21 18:35 Respiratory Rate 17 10/22/21 18:35 Blood Pressure 135/86 10/22/21 18:35 Pulse Oximetry 97 10/22/21 18:35 Course Orders Ordered: Discontinued Medications Diazepam (Diazepam 5 Mg Tablet) 5 mg PO NOW ONE Stop: 10/22/21 23:02 Last Admin: 10/22/21 23:07 Dose: 5 mg Documented by: KEILY Ketorolac Tromethamine (Ketorolac 30 Mg/Ml Vial) 30 mg IM NOW ONE Stop: 10/22/21 23:02 Last Admin: 10/22/21 23:07 Dose: 30 mg Documented by: KEILY Vital Signs Vital signs: Vital Signs - 8 hr 10/22/21 22:00 10/22/21 22:30 10/22/21 22:59 Pulse Rate 93 H 91 H Blood Pressure 137/80 131/91 H Pulse Oximetry 98 98 96 10/22/21 23:00 Pulse Rate Blood Pressure 139/80 Pulse Oximetry MDM - Chest Pain Imaging Data Chest x-ray: Radiologist's Impression: [address] [id number] XRay Report Signed Patient: Rosemarie Crowder MR#: [id number] : 1990 Acct:[id number] Age/Sex: 31 / F Date of Service: 10/22/21 Loc: ED Accession Number: [id number] ?? Procedure: XR ribs LT 2V Ordering Provider: Ruma Sanchez D.O. PROCEDURE:? XR RIBS LT 2V ? INDICATIONS:? injury ? TECHNIQUE:? To views of the left ribs were acquired.? ? COMPARISON:? None. ? FINDINGS:? ? Surgical changes and devices:? None.? ? Bones and chest wall:? No fractures or dislocations.? No suspicious bony lesions.? Overlying soft tissues appear unremarkable.? ? Lungs and pleura:? The visualized lung appears clear.? No pleural effusions or pneumothorax are visible.? ? IMPRESSION:? No acute finding. ? ? Dictated by: Madan Grajeda M.D. on 10/22/2021 at 19:39 ? ? Approved by: Madan Grajeda M.D. on 10/22/2021 at 19:39 [facility] Narrative Medical decision making narrative: This is a 31-year-old female comes with complaint of a pulled muscle. Patient has reproducible chest pain on exam consistent likely musculoskeletal cause. Chest x-ray does not show any acute structural changes, no infection. Patient exam findings and history are likely for coronary or embolic cause. Patient has improved in the past with NSAIDs. Given a dose of Toradol and muscle relaxer with plan for prescription for home. Return precautions discussed. Discharge Plan Departure Patient Disposition: Home Clinical Impression: Atypical chest pain Instructions: DI for Atypical Chest Pain Activity Restrictions/Additional Instructions: Follow-up with your physician for recheck. I believe your pain is musculoskeletal and will likely benefit from NSAIDs as well as some muscle relaxer. Decreased your activity as able, avoid twisting and heavy lifting activities. Prescription sent to [facility] in [place]. Please return for new or worsening chest pain, shortness of breath, passing out, fevers, coughing up blood, persistent vomiting, new skin changes, rashes or swelling at the site or other new or concerning symptoms. Prescriptions: New meloxicam 7.5 mg tablet 7.5 mg PO BID PRN (Reason: pain) Qty: 14 0RF diazepam [Valium] 5 mg tablet 5 mg PO TID PRN (Reason: muscle spasm) Qty: 10 0RF No Action albuterol sulfate 90 mcg/actuation HFA aerosol inhaler 1 puff INHALATION Q4-6H PRN (Reason: bronchospasm) Qty: 8 0RF sertraline 50 mg Tablet 50 mg PO DAILY 0RF Stand Alone Forms: Work Release Note
[2021-10-22] MEDS: diazePAM 5 MG TABLET PO (23:07)
[2021-10-22] MEDS: KETOROLAC 30 MG/ML VIAL IM (23:07)
== END 2021-10-22 23:21 | disposition home or self-care (01) ==
PROVIDERS: Emergency Provider Emergency Medicine
DX: R07.89 Other chest pain (principal)
CPT/HCPCS: 71100; 96372; 99283; 99284; J1885

== ENCOUNTER 2023-01-10 10:40 | Emergency (ER) | payer BC, SELFPAY ==
[2023-01-10] VITALS (8 sets, daily range): BP systolic 120–153; BP diastolic 77–95; PULSE 57–96; RESP 14–18; TEMP 36.8; O2SAT 97–100; BMI 19.8
--- NOTE | 2023-01-10 10:52 | DI.RAD.S_ITS ---
PROCEDURE: XR ABDOMEN MIN 2V INDICATIONS: vomiting 4 days, constipation TECHNIQUE: 2 views of the abdomen were acquired. COMPARISON: None. FINDINGS: Surgical changes and devices: None. Bowel: No pneumoperitoneum. The bowel gas pattern is normal. Soft tissues: No masses; visualized solid organ contours appear normal in size. No suspicious abdominal calcifications. Bones: No suspicious bony abnormalities. IMPRESSION: Nonobstructive bowel gas pattern. No significant stool load. Dictated by: Ramin Vilchis M.D. on 01/10/2023 at 11:27 Approved by: Ramin Vilchis M.D. on 01/10/2023 at 11:27
--- NOTE | 2023-01-10 10:53 | ED_ITS ---
HPI - Nausea/Vomiting/Diarrhea <Loyda Snow PA-C - Last Filed: 01/10/23 18:57> General Chief complaint: Nausea/Vomiting/Diarrhea Stated complaint: haven't been able to anything down T-4 Time Seen by Provider: 01/10/23 10:51 Source: patient Mode of arrival: Ambulatory History of Present Illness HPI Narrative: This is a 32-year-old female with a history of reactive airway, anxiety/depression who presents with concern for vomiting for 4 days. Patient states that she became nauseous and started vomiting on Friday when she was on the [place] she states she thinks she became seasick as this has happened to her in the past and she does have to write a [employer] quite a bit for work. She states she vomited about every 1-2 hours all day Friday and Friday she started to feel a bit better yesterday on and was able to keep down some applesauce and keep fluids down better but then this morning when she woke up she felt nauseous again and has been vomiting. Last food was small amount of applesauce at 7:00 p.m. yesterday. Patient states that yesterday she noticed a little bit of abdominal pain and discomfort which is only present when she is lying on her side or in certain positions, she says it is both on the left and the right and is mild and intermittent--she describes it as a pressure. She states that she typically has a bowel movement once a day although has had problems with constipation in the past where she may go 3-5 days without 1, she really has not had a significant bowel movement since Friday, she did have a small bowel movement this morning but says she feels ?blocked up?. Patient says she has felt a little hot and cold in the last few days but has not checked her temperature. She acknowledges that she does use marijuana but is otherwise a nonsmoker, she has not had problems in the past with excessive vomiting. She states her periods are regular her last 1 ended last week and it was normal for her. She endorses drinking 2 beers a day but none for the last 4 days since she is been vomiting--patient later acknowledges she actually drinks 3-4 beers a day every day she states she is been doing this for the last 1-2 years. States she is never gone into withdrawals from not having alcohol. She also endorses she typically takes 800 mg of ibuprofen every night before bed for ?aches and pains, headaches. States she has fairly frequent headaches, she does state she drinks water but maybe not even as much as a Liter a day. Denies fevers, persistent or severe abdominal pain, shortness of breath, chest pain, back pain, dysuria, frequency, urgency, dark urine, diarrhea or any other symptoms. Related Data Home Medications Medication Instructions Recorded Confirmed sertraline 50 mg tablet 50 mg PO DAILY 10/22/21 10/22/21 Previous Rx's Medication Instructions Recorded albuterol sulfate 90 mcg/actuation 1 puff inhalation Q4-6H PRN 11/21/18 aerosol inhaler bronchospasm #8 grams diazepam 5 mg tablet (Valium) 5 mg PO TID PRN muscle spasm #10 10/22/21 tabs meloxicam 7.5 mg tablet 7.5 mg PO BID PRN pain #14 tabs 10/22/21 lorazepam 0.5 mg tablet (Ativan) 0.5 mg PO TID PRN nausea and 01/10/23 vomiting 3 days #7 tabs ondansetron 4 mg disintegrating 4 mg PO Q8H PRN nausea and 01/10/23 tablet vomiting 7 days #21 tabs Allergies Allergy/AdvReac Type Severity Reaction Status Date / Time [place] And Derivatives Allergy Unknown Verified 10/22/21 18:39 [CITRUS AND DERIVATIVES] peanut [PEANUT] Allergy Unknown Verified 10/22/21 18:39 Review of Systems <Loyda Snow PA-C - Last Filed: 01/10/23 18:57> Review of Systems Narrative: See HPI Patient History <Loyda Snow PA-C - Last Filed: 01/10/23 18:57> Medical History Asthma exacerbation Upper GI bleeding Social History Smoking Status: Never smoker Smoking Status: Never smoker alcohol intake frequency: 3 or more drinks per day Alcohol type: beer Substance Use Type: marijuana Exam <Loyda Snow PA-C - Last Filed: 01/10/23 18:57> Narrative Exam Narrative: GENERAL: 32 year old patient appears stated age. Well-developed patient, in mild distress, uncomfortable appearing. HEAD: Atraumatic. Normocephalic. EYES: Pupils equal round and reactive. Extraocular motions intact. No scleral icterus. No injection or drainage. ENT: Nose without bleeding, purulent drainage. Throat without erythema, tonsillar hypertrophy or exudate. Airway patent. NECK: Trachea midline. Non tender CARDIOVASCULAR: Regular rate and rhythm without murmurs, gallops, or rubs. RESPIRATORY: Clear to auscultation. Breath sounds equal bilaterally. No wheezes, rales, or rhonchi. GASTROINTESTINAL: Abdomen soft, non-tender, nondistended, no CVA tenderness. On re-examination patient does have some slight tenderness in the left upper quadrant laterally. EXTREMITIES: No edema or joint tenderness. BACK: Nontender without deformity or crepitance. No flank tenderness. NEURO: AOx3. SKIN: No rash or erythema of visible areas Initial Vital Signs Initial Vital Signs: Vital Signs Temperature 98.2 F 01/10/23 10:43 Pulse Rate 96 H 01/10/23 10:43 Respiratory Rate 18 01/10/23 10:43 Blood Pressure 125/89 01/10/23 10:43 Pulse Oximetry 98 01/10/23 10:43 Oxygen Delivery Method Room Air 01/10/23 10:43 <Abeba Webb DO - Last Filed: 01/10/23 19:08> Initial Vital Signs Initial Vital Signs: Vital Signs Temperature 98.2 F 01/10/23 10:43 Pulse Rate 96 H 01/10/23 10:43 Respiratory Rate 18 01/10/23 10:43 Blood Pressure 125/89 01/10/23 10:43 Pulse Oximetry 98 01/10/23 10:43 Oxygen Delivery Method Room Air 01/10/23 10:43 Course <Loyda Snow PA-C - Last Filed: 01/10/23 18:57> Course Course Narrative: did consult Dr. Webb regarding this patient noting her hypokalemia as well as her elevated bili. Dr. Webb recommends ultrasound imaging 1st for further evaluation of the liver. This is ordered. Also ordered acetaminophen levels and acute hepatitis panel. Did speak to Dr. Webb again about this patient, do feel that the ultrasound note of steatosis is more likely cirrhosis. Feel it is most appropriate to seek further evaluation rule out stone with an MRCP there is availability this afternoon and this is ordered. We will see how patient does tolerating fluids, may try Ativan if Zofran is not helping with her vomiting. Given her h ypokalemia may consider admission especially if she is unable to keep fluids down. 1318 will be here to take the patient to MRCP at 2:45 p.m.. Patient did endorse some anxiety associated with small spaces and anticipate giving her Ativan for premedication, she is also having nausea now and has failed Zofran, 0.5 Ativan ordered now anticipate additional 0.5 just prior to MRCP. 1400 Rechecked the patient after she received Ativan for premedication for MR as well as for her nausea and vomiting, she is feeling much better as far as her vomiting and also feels comfortable going 2 MR. 1445 Rechecked the patient she is feeling much better after she had the Ativan and 2nd doses Zofran earlier, she has not vomited since. We are trying a p.o. challenge for her. 1650 Orders Ordered: ED Orders 01/10/23 10:52 XR abdomen min 2V Stat 01/10/23 10:55 Acetaminophen Stat Complete Blood Count AUTO DIFF Stat Comprehensive Metabolic Panel Stat Ethanol (ETOH) Stat Lipase Stat Magnesium Stat Monotest Stat 01/10/23 11:00 Covid-19 + FLU A/B + RSV - PCR Stat 01/10/23 11:40 Urine Culture Stat Urine Microscopic Stat 01/10/23 11:43 US abdomen limited Stat 01/10/23 13:13 MRCP [MR abdomen wo/w con] Stat 01/10/23 13:35 Hepatitis Acute Panel Stat 01/10/23 14:04 EKG-12 Lead Stat Discontinued Medications Sodium Chloride (Normal Saline 0.9%) 1,000 mls @ 1,000 mls/hr IV BOLUS ONE Stop: 01/10/23 11:50 Last Infusion: 01/10/23 12:33 Dose: 0 mls/hr Documented By: Admin: 01/10/23 11:08 Dose: 1,000 mls/hr Documented By: RB Lactated Ringer's (Lactated Ringers) 1,000 mls @ 1,000 mls/hr IV BOLUS ONE Stop: 01/10/23 13:47 Last Infusion: 01/10/23 14:18 Dose: 0 mls/hr Documented By: Admin: 01/10/23 13:15 Dose: 1,000 mls/hr Documented By: JARETH Lorazepam (Lorazepam 2 Mg/Ml Inj) 0.5 mg IV NOW ONE Stop: 01/10/23 13:57 Last Admin: 01/10/23 14:16 Dose: 0.5 mg Documented By: MAYCOL Lorazepam (Lorazepam 2 Mg/Ml Inj) 0.5 mg IV NOW ONE Stop: 01/10/23 14:46 Last Admin: 01/10/23 14:41 Dose: 0.5 mg Documented By: MAYCOL Ondansetron HCl (Ondansetron 4 Mg/2 Ml Inj) 4 mg IV NOW ONE Stop: 01/10/23 10:52 Last Admin: 01/10/23 11:08 Dose: 4 mg Documented By: JARETH Ondansetron HCl (Ondansetron 4 Mg/2 Ml Inj) 4 mg IV NOW ONE Stop: 01/10/23 12:48 Last Admin: 01/10/23 13:16 Dose: 4 mg Documented By: JARETH Potassium Chloride (Potassium Chloride 20 Meq/15 Ml Udc) 40 meq PO NOW ONE Stop: 01/10/23 11:42 Last Admin: 01/10/23 12:08 Dose: 40 meq Documented By: JARETH Vital Signs Vital signs: Vital Signs - 8 hr 01/10/23 11:22 01/10/23 12:30 01/10/23 13:00 Pulse Rate 73 67 60 Respiratory Rate Blood Pressure 120/77 152/90 H 142/82 H Pulse Oximetry 99 100 98 Oxygen Delivery Method Room Air Room Air Room Air 01/10/23 13:30 01/10/23 14:00 01/10/23 14:43 Pulse Rate 57 L 62 57 L Respiratory Rate 14 Blood Pressure 153/95 H 147/91 H Pulse Oximetry 97 97 99 Oxygen Delivery Method Room Air Room Air Room Air 01/10/23 18:19 Pulse Rate 74 Respiratory Rate 18 Blood Pressure 142/78 H Pulse Oximetry 97 Oxygen Delivery Method Room Air <Abeba Webb DO - Last Filed: 01/10/23 19:08> Orders Ordered: ED Orders 01/10/23 10:52 XR abdomen min 2V Stat 01/10/23 10:55 Acetaminophen Stat Complete Blood Count AUTO DIFF Stat Comprehensive Metabolic Panel Stat Ethanol (ETOH) Stat Lipase Stat Magnesium Stat Monotest Stat 01/10/23 11:00 Covid-19 + FLU A/B + RSV - PCR Stat 01/10/23 11:40 Urine Culture Stat Urine Microscopic Stat 01/10/23 11:43 US abdomen limited Stat 01/10/23 13:13 MRCP [MR abdomen wo/w con] Stat 01/10/23 13:35 Hepatitis Acute Panel Stat 01/10/23 14:04 EKG-12 Lead Stat Discontinued Medications Sodium Chloride (Normal Saline 0.9%) 1,000 mls @ 1,000 mls/hr IV BOLUS ONE Stop: 01/10/23 11:50 Last Infusion: 01/10/23 12:33 Dose: 0 mls/hr Documented By: Admin: 01/10/23 11:08 Dose: 1,000 mls/hr Documented By: JARETH Lactated Ringer's (Lactated Ringers) 1,000 mls @ 1,000 mls/hr IV BOLUS ONE Stop: 01/10/23 13:47 Last Infusion: 01/10/23 14:18 Dose: 0 mls/hr Documented By: Admin: 01/10/23 13:15 Dose: 1,000 mls/hr Documented By: JARETH Lorazepam (Lorazepam 2 Mg/Ml Inj) 0.5 mg IV NOW ONE Stop: 01/10/23 13:57 Last Admin: 01/10/23 14:16 Dose: 0.5 mg Documented By: MAYCOL Lorazepam (Lorazepam 2 Mg/Ml Inj) 0.5 mg IV NOW ONE Stop: 01/10/23 14:46 Last Admin: 01/10/23 14:41 Dose: 0.5 mg Documented By: MAYCOL Ondansetron HCl (Ondansetron 4 Mg/2 Ml Inj) 4 mg IV NOW ONE Stop: 01/10/23 10:52 Last Admin: 01/10/23 11:08 Dose: 4 mg Documented By: JARETH Ondansetron HCl (Ondansetron 4 Mg/2 Ml Inj) 4 mg IV NOW ONE Stop: 01/10/23 12:48 Last Admin: 01/10/23 13:16 Dose: 4 mg Documented By: JARETH Potassium Chloride (Potassium Chloride 20 Meq/15 Ml Udc) 40 meq PO NOW ONE Stop: 01/10/23 11:42 Last Admin: 01/10/23 12:08 Dose: 40 meq Documented By: JARETH Vital Signs Vital signs: Vital Signs - 8 hr 01/10/23 11:22 01/10/23 12:30 01/10/23 13:00 Pulse Rate 73 67 60 Respiratory Rate Blood Pressure 120/77 152/90 H 142/82 H Pulse Oximetry 99 100 98 Oxygen Delivery Method Room Air Room Air Room Air 01/10/23 13:30 01/10/23 14:00 01/10/23 14:43 Pulse Rate 57 L 62 57 L Respiratory Rate 14 Blood Pressure 153/95 H 147/91 H Pulse Oximetry 97 97 99 Oxygen Delivery Method Room Air Room Air Room Air 01/10/23 18:19 Pulse Rate 74 Respiratory Rate 18 Blood Pressure 142/78 H Pulse Oximetry 97 Oxygen Delivery Method Room Air MDM - Nausea/Vomiting/Diarrhea <Loyda Snow PA-C - Last Filed: 01/10/23 18:57> Differential Diagnosis Differential diagnosis: Likely traveler's diarrhea, food poisoning, dehydration and other (Gastritis, viral illness, constipation) Medical Records Attestation: I reviewed the patient's medical records. Lab Data Attestation: I reviewed the patient's lab results. 01/10/23 10:55 01/10/23 10:55 Labs: Lab Results 01/10/23 01/10/23 01/10/23 Range/Units 10:55 10:55 10:55 WBC 8.2 (4.5-11.0) X10^3/uL RBC 4.63 (4.0-5.2) X10^6/uL Hgb 17.2 H (12.0-16.0) g/dL Hct 47.1 H (36-46) % MCV 101.6 H (80-100) fL MCH 37.1 H (26-34) PG MCHC 36.5 H (30-36) % RDW 14.0 (11.6-14.8) % Plt Count 264 (150-400) X10^3/uL Neut % (Auto) 71.1 (50-75) % Lymph % (Auto) 20.3 L (25-40) % [place] % (Auto) 8.1 (3-14) % Eos % (Auto) 0.2 L (2-4) % Baso % (Auto) 0.3 (0-2) % Neut # (Auto) 5800 (4297-2134) /uL Lymph # (Auto) 1700 (2883-0553) /uL [place] # (Auto) 700 (0-900) /uL Eos # (Auto) 0 (0-450) /uL Baso # (Auto) 0 (0-100) /uL Sodium 134 L (137-145) mmol/L Potassium 2.9 L (3.4-5.1) mmol/L Chloride 93 L (98-107) mmol/L Carbon Dioxide 30 (22-32) mmol/L BUN 9 (7-17) mg/dL Creatinine 0.65 (0.52-1.04) mg/dL Estimated GFR > 60 (>60) mL/min BUN/Creatinine Ratio 13.8 (6-22) Glucose 112 H (70-100) mg/dL Calcium 9.8 (8.4-10.2) mg/dL Magnesium (1.6-2.3) mg/dL Total Bilirubin 7.8 H (0.2-1.3) mg/dL AST 65 H (14-36) IU/L ALT 50 H (<35) IU/L Alkaline Phosphatase 103 (38-126) U/L Total Protein 7.7 (6.3-8.2) g/dL Albumin 4.7 (3.5-5.0) g/dL Globulin 3.0 (1.7-4.1) g/dL Albumin/Globulin Ratio 1.6 (1.0-2.8) Lipase 47 (23-300) U/L Urine RBC (0-5/HPF) Urine WBC (0-5/HPF) Ur Squamous Epith Cells (0-5/HPF) Ur Transition Epith Cell (0-5/HPF) Ur Renal Epithelial Cell (0-1/HPF) Urine Bacteria (None) Acetaminophen (10-30) ug/mL Ethyl Alcohol < 10 ( - 10) mg/dL SARS-CoV-2 (PCR) (Negative) Monoscreen (Negative) Influenza A (RT-PCR) (NEGATIVE) Influenza B (RT-PCR) (NEGATIVE) RSV (PCR) (Negative) 01/10/23 01/10/23 01/10/23 Range/Units 10:55 10:55 10:55 WBC (4.5-11.0) X10^3/uL RBC (4.0-5.2) X10^6/uL Hgb (12.0-16.0) g/dL Hct (36-46) % MCV (80-100) fL MCH (26-34) PG MCHC (30-36) % RDW (11.6-14.8) % Plt Count (150-400) X10^3/uL Neut % (Auto) (50-75) % Lymph % (Auto) (25-40) % [place] % (Auto) (3-14) % Eos % (Auto) (2-4) % Baso % (Auto) (0-2) % Neut # (Auto) (9591-9922) /uL Lymph # (Auto) (2641-4750) /uL [place] # (Auto) (0-900) /uL Eos # (Auto) (0-450) /uL Baso # (Auto) (0-100) /uL Sodium (137-145) mmol/L Potassium (3.4-5.1) mmol/L Chloride (98-107) mmol/L Carbon Dioxide (22-32) mmol/L BUN (7-17) mg/dL Creatinine (0.52-1.04) mg/dL Estimated GFR (>60) mL/min BUN/Creatinine Ratio (6-22) Glucose (70-100) mg/dL Calcium (8.4-10.2) mg/dL Magnesium 2.1 (1.6-2.3) mg/dL Total Bilirubin (0.2-1.3) mg/dL AST (14-36) IU/L ALT (<35) IU/L Alkaline Phosphatase (38-126) U/L Total Protein (6.3-8.2) g/dL Albumin (3.5-5.0) g/dL Globulin (1.7-4.1) g/dL Albumin/Globulin Ratio (1.0-2.8) Lipase (23-300) U/L Urine RBC (0-5/HPF) Urine WBC (0-5/HPF) Ur Squamous Epith Cells (0-5/HPF) Ur Transition Epith Cell (0-5/HPF) Ur Renal Epithelial Cell (0-1/HPF) Urine Bacteria (None) Acetaminophen < 10 (10-30) ug/mL Ethyl Alcohol ( - 10) mg/dL SARS-CoV-2 (PCR) (Negative) Monoscreen Negative (Negative) Influenza A (RT-PCR) (NEGATIVE) Influenza B (RT-PCR) (NEGATIVE) RSV (PCR) (Negative) 01/10/23 01/10/23 Range/Units 11:00 11:40 WBC (4.5-11.0) X10^3/uL RBC (4.0-5.2) X10^6/uL Hgb (12.0-16.0) g/dL Hct (36-46) % MCV (80-100) fL MCH (26-34) PG MCHC (30-36) % RDW (11.6-14.8) % Plt Count (150-400) X10^3/uL Neut % (Auto) (50-75) % Lymph % (Auto) (25-40) % [place] % (Auto) (3-14) % Eos % (Auto) (2-4) % Baso % (Auto) (0-2) % Neut # (Auto) (4245-3891) /uL Lymph # (Auto) (7680-3865) /uL [place] # (Auto) (0-900) /uL Eos # (Auto) (0-450) /uL Baso # (Auto) (0-100) /uL Sodium (137-145) mmol/L Potassium (3.4-5.1) mmol/L Chloride (98-107) mmol/L Carbon Dioxide (22-32) mmol/L BUN (7-17) mg/dL Creatinine (0.52-1.04) mg/dL Estimated GFR (>60) mL/min BUN/Creatinine Ratio (6-22) Glucose (70-100) mg/dL Calcium (8.4-10.2) mg/dL Magnesium (1.6-2.3) mg/dL Total Bilirubin (0.2-1.3) mg/dL AST (14-36) IU/L ALT (<35) IU/L Alkaline Phosphatase (38-126) U/L Total Protein (6.3-8.2) g/dL Albumin (3.5-5.0) g/dL Globulin (1.7-4.1) g/dL Albumin/Globulin Ratio (1.0-2.8) Lipase (23-300) U/L Urine RBC None seen (0-5/HPF) Urine WBC 1-5/hpf (0-5/HPF) Ur Squamous Epith Cells 1-5 /hpf (0-5/HPF) Ur Transition Epith Cell 1-5/hpf (0-5/HPF) Ur Renal Epithelial Cell 1-5/hpf H (0-1/HPF) Urine Bacteria None seen (None) Acetaminophen (10-30) ug/mL Ethyl Alcohol ( - 10) mg/dL SARS-CoV-2 (PCR) Negative (Negative) Monoscreen (Negative) Influenza A (RT-PCR) Flu a negative (NEGATIVE) Influenza B (RT-PCR) Flu b negative (NEGATIVE) RSV (PCR) Negative (Negative) Point of Care Testing Test Results Negative Urine Dip Bedside Urine Glucose Negative Bedside Urine Bilirubin - Negative Bedside Urine Ketone + 15 Urine Specific [place] 1.010 Bedside Urine Occult Blood - Negative Bedside Urine pH 7.0 Bedside Urine Protein +/- 15 Bedside Urine Urobilinogen +/- 1mg Bedside Urine Nitrite - Negative Bedside Urine Leukocytes + 70 Esterase Imaging Data US - abdomen: Radiologist's Impression: [place] [address] Ultrasound Report Signed Patient: Rosemarie Crowder MR#: [id number] : 1990 Acct:[id number] Age/Sex: 32 / F Date of Service: 01/10/23 Loc: ED Accession Number: [id number] ?? Procedure: US abdomen limited Ordering Provider: Loyda Snow P.A-C PROCEDURE: US ABDOMEN LIMITED ? INDICATIONS:? ELEVATED BILI, VOMITING X 5 DAYS ? TECHNIQUE:? Real-time focused scanning was performed of the abdomen, with image documentation.? ? COMPARISON:? [facility], , US ABDOMEN LIMITED, 01/18/2020, 20:49. ? FINDINGS:? Diffuse increased echogenicity of the liver is consistent with diffuse hepatic steatosis. ? No gallstones or significant gallbladder wall thickening.? No dilated ducts.? Common bile duct measures 3.8 mm. ? Visualized portions the pancreas are unremarkable. ? IMPRESSION:? ? 1. Diffuse hepatic steatosis. ? 2. No evidence of gallstone disease. ? ? Dictated by: Wyatt Daniels M.D. on 01/10/2023 at 12:28 ? ? Approved by: Wyatt Daniels M.D. on 01/10/2023 at 12:30?? MRCP: Radiologist's Impression: [address] [address] Magnetic Resonance Report Signed Patient: Rosemarie Crowder MR#: [id number] : 1990 Acct:[id number] Age/Sex: 32 / F Date of Service: 01/10/23 Loc: ED Accession Number: [id number] ?? Procedure: MR abdomen wo/w con Ordering Provider: Loyda Snow P.A-C PROCEDURE:? MR ABDOMEN WO/W CON ? INDICATIONS:? elevated bili, N/V x5 days ? TECHNIQUE:? Coronal HASTE, axial 2D FLASH in- and [id number]; axial breath-hold T2 FSE wit h fat saturation from the hepatic dome to the iliac crests.? Oblique coronal thin- slice and radial thick slab HASTE through the biliary system.? Dynamic axial VIBE during administration of contrast.? Post-contrast coronal VIBE or 2D FLASH with fat saturation from the hepatic dome to the iliac crests.? Optional diffusion weighted imaging and ADC may be performed.? ? COMPARISON:? None. ? FINDINGS:? Image quality:? Excellent.? ? Liver: No solid mass.? Enlarged, measuring 20.9 cm. Edge blunting present.? Signal dropout on the out of phase sequence, consistent with marked hepatic steatosis. Gallbladder/biliary tree: No gallstones or biliary dilation. Spleen:? Enlarged, measuring 14.1 cm Pancreas:? No ductal dilation. Adrenal glands:? No adrenal nodules. Kidneys:? No solid mass.? No complex renal cysts which requires follow-up. ? Nodes and vessels:? No retroperitoneal or mesenteric adenopathy by size criteria.? Aorta and inferior vena cava are normal in size.? ? Bowel and peritoneum:? Unenhanced bowel loops are normal in caliber throughout.? No free fluid.? Small hiatal hernia.? ? Lung bases:? No basal pleural effusions.? Heart size is normal.? ? Bones and soft tissues:? No ventral hernias.? Bone marrow is normal in overall signal.? ? ? IMPRESSION:? No biliary dilation or gallbladder pathology. ? Marked hepatic steatosis. ? Hepatosplenomegaly. ? Dictated by: Ramin Vilchis M.D. on 01/10/2023 at 15:43 ? ? Approved by: Ramin Vilchis M.D. on 01/10/2023 at 15:47?? Treatment and disposition Shared decision making:: Shared decision-making was used in determining the patient's plan of care and evaluation today in the emergency department and plan for outpatient follow up. MDM Narrative Medical decision making narrative: This is a 32-year-old woman who presents with concern for 5 days of nausea and vomiting improved somewhat yesterday but we worsened this morning. Initial basic workup reveals she has a elevated bilirubin to 7.8, initially no abdominal tenderness but on repeat exam she does have some slight left upper quadrant tenderness, other labs look okay with the exception of potassium which is low at 2.9. Potassium is supplemented with oral potassium 40 mEq which patient is able to keep down she does have an episode (small) of vomiting approximately 45 minutes to an hour after taking this. Right upper quadrant ultrasound notes hepatic steatosis, suspect this may actually be cirrhosis given patient's alcohol use history and after consultation with Dr. Presley, MRCP is also performed today which returns negative but does note again hepatic steatosis and hepatomegaly with splenomegaly. Patient did receive Ativan prior to her MRCP and also for her nausea vomiting with good results, she did not have any repeat vomiting all afternoon. Patient's other labs were looking okay--she has no LFT elevation and CBC is unremarkable, she does have negative acetaminophen levels and negative mono screen. Urine microscopic showed epithelial cells present, no bacteria patient takes daily ibuprofen 800 mg will counseled to cut back on this as I suspect this may be affecting her kidneys. Her GFR and creatinine clearance were fine today, INR was 1.2. MELD 3 score is calculated as 19 with 95.5% 90 day survival. Patient did not have any evidence of alcohol withdrawals today during her stay. No history of alcohol withdrawal. Plan for patient to have close follow-up with her PCP and get in to see Gastroenterology as soon as possible for further evaluation of her suspected liver cirrhosis. Hepatitis panel is still pending at time of discharge. P.o. trial with fluids a successful prior to discharge. Return precautions provided, follow-up plan discussed, all questions answered. <Abeba Webb, DO - Last Filed: 01/10/23 19:08> Lab Data Labs: Lab Results 01/10/23 01/10/23 01/10/23 Range/Units 10:55 10:55 10:55 WBC 8.2 (4.5-11.0) X10^3/uL RBC 4.63 (4.0-5.2) X10^6/uL Hgb 17.2 H (12.0-16.0) g/dL Hct 47.1 H (36-46) % MCV 101.6 H (80-100) fL MCH 37.1 H (26-34) PG MCHC 36.5 H (30-36) % RDW 14.0 (11.6-14.8) % Plt Count 264 (150-400) X10^3/uL Neut % (Auto) 71.1 (50-75) % Lymph % (Auto) 20.3 L (25-40) % [place] % (Auto) 8.1 (3-14) % Eos % (Auto) 0.2 L (2-4) % Baso % (Auto) 0.3 (0-2) % Neut # (Auto) 5800 (1010-3672) /uL Lymph # (Auto) 1700 (7132-1274) /uL [place] # (Auto) 700 (0-900) /uL Eos # (Auto) 0 (0-450) /uL Baso # (Auto) 0 (0-100) /uL Sodium 134 L (137-145) mmol/L Potassium 2.9 L (3.4-5.1) mmol/L Chloride 93 L (98-107) mmol/L Carbon Dioxide 30 (22-32) mmol/L BUN 9 (7-17) mg/dL Creatinine 0.65 (0.52-1.04) mg/dL Estimated GFR > 60 (>60) mL/min BUN/Creatinine Ratio 13.8 (6-22) Glucose 112 H (70-100) mg/dL Calcium 9.8 (8.4-10.2) mg/dL Magnesium (1.6-2.3) mg/dL Total Bilirubin 7.8 H (0.2-1.3) mg/dL AST 65 H (14-36) IU/L ALT 50 H (<35) IU/L Alkaline Phosphatase 103 (38-126) U/L Total Protein 7.7 (6.3-8.2) g/dL Albumin 4.7 (3.5-5.0) g/dL Globulin 3.0 (1.7-4.1) g/dL Albumin/Globulin Ratio 1.6 (1.0-2.8) Lipase 47 (23-300) U/L Urine RBC (0-5/HPF) Urine WBC (0-5/HPF) Ur Squamous Epith Cells (0-5/HPF) Ur Transition Epith Cell (0-5/HPF) Ur Renal Epithelial Cell (0-1/HPF) Urine Bacteria (None) Acetaminophen (10-30) ug/mL Ethyl Alcohol < 10 ( - 10) mg/dL SARS-CoV-2 (PCR) (Negative) Monoscreen (Negative) Influenza A (RT-PCR) (NEGATIVE) Influenza B (RT-PCR) (NEGATIVE) RSV (PCR) (Negative) 01/10/23 01/10/23 01/10/23 Range/Units 10:55 10:55 10:55 WBC (4.5-11.0) X10^3/uL RBC (4.0-5.2) X10^6/uL Hgb (12.0-16.0) g/dL Hct (36-46) % MCV (80-100) fL MCH (26-34) PG MCHC (30-36) % RDW (11.6-14.8) % Plt Count (150-400) X10^3/uL Neut % (Auto) (50-75) % Lymph % (Auto) (25-40) % [place] % (Auto) (3-14) % Eos % (Auto) (2-4) % Baso % (Auto) (0-2) % Neut # (Auto) (1562-7297) /uL Lymph # (Auto) (6594-3997) /uL [place] # (Auto) (0-900) /uL Eos # (Auto) (0-450) /uL Baso # (Auto) (0-100) /uL Sodium (137-145) mmol/L Potassium (3.4-5.1) mmol/L Chloride (98-107) mmol/L Carbon Dioxide (22-32) mmol/L BUN (7-17) mg/dL Creatinine (0.52-1.04) mg/dL Estimated GFR (>60) mL/min BUN/Creatinine Ratio (6-22) Glucose (70-100) mg/dL Calcium (8.4-10.2) mg/dL Magnesium 2.1 (1.6-2.3) mg/dL Total Bilirubin (0.2-1.3) mg/dL AST (14-36) IU/L ALT (<35) IU/L Alkaline Phosphatase (38-126) U/L Total Protein (6.3-8.2) g/dL Albumin (3.5-5.0) g/dL Globulin (1.7-4.1) g/dL Albumin/Globulin Ratio (1.0-2.8) Lipase (23-300) U/L Urine RBC (0-5/HPF) Urine WBC (0-5/HPF) Ur Squamous Epith Cells (0-5/HPF) Ur Transition Epith Cell (0-5/HPF) Ur Renal Epithelial Cell (0-1/HPF) Urine Bacteria (None) Acetaminophen < 10 (10-30) ug/mL Ethyl Alcohol ( - 10) mg/dL SARS-CoV-2 (PCR) (Negative) Monoscreen Negative (Negative) Influenza A (RT-PCR) (NEGATIVE) Influenza B (RT-PCR) (NEGATIVE) RSV (PCR) (Negative) 01/10/23 01/10/23 Range/Units 11:00 11:40 WBC (4.5-11.0) X10^3/uL RBC (4.0-5.2) X10^6/uL Hgb (12.0-16.0) g/dL Hct (36-46) % MCV (80-100) fL MCH (26-34) PG MCHC (30-36) % RDW (11.6-14.8) % Plt Count (150-400) X10^3/uL Neut % (Auto) (50-75) % Lymph % (Auto) (25-40) % [place] % (Auto) (3-14) % Eos % (Auto) (2-4) % Baso % (Auto) (0-2) % Neut # (Auto) (5006-1703) /uL Lymph # (Auto) (0532-5466) /uL [place] # (Auto) (0-900) /uL Eos # (Auto) (0-450) /uL Baso # (Auto) (0-100) /uL Sodium (137-145) mmol/L Potassium (3.4-5.1) mmol/L Chloride (98-107) mmol/L Carbon Dioxide (22-32) mmol/L BUN (7-17) mg/dL Creatinine (0.52-1.04) mg/dL Estimated GFR (>60) mL/min BUN/Creatinine Ratio (6-22) Glucose (70-100) mg/dL Calcium (8.4-10.2) mg/dL Magnesium (1.6-2.3) mg/dL Total Bilirubin (0.2-1.3) mg/dL AST (14-36) IU/L ALT (<35) IU/L Alkaline Phosphatase (38-126) U/L Total Protein (6.3-8.2) g/dL Albumin (3.5-5.0) g/dL Globulin (1.7-4.1) g/dL Albumin/Globulin Ratio (1.0-2.8) Lipase (23-300) U/L Urine RBC None seen (0-5/HPF) Urine WBC 1-5/hpf (0-5/HPF) Ur Squamous Epith Cells 1-5 /hpf (0-5/HPF) Ur Transition Epith Cell 1-5/hpf (0-5/HPF) Ur Renal Epithelial Cell 1-5/hpf H (0-1/HPF) Urine Bacteria None seen (None) Acetaminophen (10-30) ug/mL Ethyl Alcohol ( - 10) mg/dL SARS-CoV-2 (PCR) Negative (Negative) Monoscreen (Negative) Influenza A (RT-PCR) Flu a negative (NEGATIVE) Influenza B (RT-PCR) Flu b negative (NEGATIVE) RSV (PCR) Negative (Negative) Point of Care Testing Test Results Negative Urine Dip Bedside Urine Glucose Negative Bedside Urine Bilirubin - Negative Bedside Urine Ketone + 15 Urine Specific [place] 1.010 Bedside Urine Occult Blood - Negative Bedside Urine pH 7.0 Bedside Urine Protein +/- 15 Bedside Urine Urobilinogen +/- 1mg Bedside Urine Nitrite - Negative Bedside Urine Leukocytes + 70 Esterase ECG Data Attestation: I personally reviewed and interpreted this ECG as follows: Interpretation: Sinus bradycardia rate of 55 [place] 150 QRS is [address] change. Discharge Plan Departure Patient Disposition: Home Clinical Impression: Elevated bilirubin, Acute hypokalemia, Nausea & vomiting, Hepatomegaly, Splenomegaly Activity Restrictions/Additional Instructions: *You have been diagnosed with hepatic steatosis, (suspect cirrhosis)--elevated bilirubin, hepatomegaly, splenomegaly, hypokalemia (low potassium) *What to do: *Please continue to take your regular medications as directed. [2 ] New medication prescriptions sent to your pharmacy: [Zofran, Ativan] [ ] New medication written as a paper prescription [ ] No new medications given *Please follow up with your primary care provider in 2-3 days, call for an appointment. Let them know you were seen in the Emergency Department and that we ask that you be seen in follow up. We will electronically transmit a record of today's note if your PCP is in our system. Most of your labs today were looking okay except your bilirubin was very elevated indicating that your liver is not functioning well, we did multiple studies today including an ultrasound as well as a MR CP study which evaluates your biliary system (liver gallbladder and associated anatomy) these were looking okay except that your liver does show signs of steatosis we suspect this may actually be cirrhosis. It is possible t hat your symptoms are due to your liver not working well quite possibly due to your persistent alcohol use over the last year or 2. It is very important that you get into see your primary care provider and oxyhydrogen welder as soon as possible for further evaluation and discussion of next steps. In the meantime as long as you are able to take fluids okay and hopefully soon able to tolerate some solid foods you can follow-up as an outpatient. I did prescribe 2 different antinausea medicines, it is important not to take these more frequently than recommended and be cautious about taking them both at the same time. As we discussed I recommend that you try to avoid drinking any alcohol moving forward given the state of your liver. Please call Dr. Aponte's office at your earliest ability such as Friday morning you can also call Gastroenterology offices to see about getting in to be seen although you will probably have better luck with the referral from your primary care provider. If you do have new or worsening symptoms including inability to keep down food or fluids, palpitations increasing abdominal pain or any other symptoms of concern please do not hesitate to seek re-evaluation or return to the emergency department. *If you do not have a primary care provider please contact the [facility] Resource line at [phone]. They will ask some questions about your medical history and help get you set up with a doctor in the community. *Return to Emergency Department if you should have any new, worsening or concerning symptoms, such as [fever greater than 101 F, shaking chills, worsening pain, persistent vomiting or other bothersome symptoms] Prescriptions: New lorazepam [Ativan] 0.5 mg tablet 0.5 mg PO TID PRN (Reason: nausea and vomiting) 3 Days Qty: 7 0RF ondansetron 4 mg tablet,disintegrating 4 mg PO Q8H PRN (Reason: nausea and vomiting) 7 Days Qty: 21 0RF No Action albuterol sulfate 90 mcg/actuation HFA aerosol inhaler 1 puff INHALATION Q4-6H PRN (Reason: bronchospasm) Qty: 8 0RF sertraline 50 mg Tablet 50 mg PO DAILY meloxicam 7.5 mg tablet 7.5 mg PO BID PRN (Reason: pain) Qty: 14 0RF diazepam [Valium] 5 mg tablet 5 mg PO TID PRN (Reason: muscle spasm) Qty: 10 0RF Referrals: Miscellaneous,Doctor, MD [Primary Care Provider] - Stand Alone Forms: Patient Portal/API, Work Release Note <Abeba Webb DO - Last Filed: 01/10/23 19:08> Cosign ED Attending Jenniferature Attestation: I was immediately available in the department for consultation. Documentation has been reviewed. Case was discussed, patient's history, examination, labs, imaging were reviewed discussed MRCP to rule out any sort of choledocholithiasis or seems less likely with only elevated bilirubin and normal lipase. Patient was able to tolerate orals after some antinausea medication and took oral potassium. Hepatitis panel was sent, Tylenol level. Patient does drink alcohol regularly in his likely source. Patient felt appropriate for discharge with return precautions and need for follow-up with primary care/gastroenterology alcohol cessation. MELD score reviewed.
[2023-01-10 11:07] LABS: Add Manual Diff / Slide Review NO; Basophils Absolute Auto 0 /uL (0-100); Basophils Percent Auto 0.3 % (0-2); Eosinophils Absolute Auto 0 /uL (0-450); Eosinophils Percent Auto 0.2 % (2-4); Hematocrit 47.1 % (36-46); Hemoglobin 17.2 g/dL (12.0-16.0); Lymphocytes Absolute Auto 1700 /uL (1100-4500); Lymphocytes Percent Auto 20.3 % (25-40); Mean Corpuscular HGB Conc 36.5 % (30-36); Mean Corpuscular Hemoglobin 37.1 PG (26-34); Mean Corpuscular Volume 101.6 fL (80-100); Monocytes Absolute Auto 700 /uL (0-900); Monocytes Percent Auto 8.1 % (3-14); Neutrophils Absolute Auto 5800 /uL (1500-7000); Neutrophils Percent Auto 71.1 % (50-75); Platelet Count 264 X10^3/uL (150-400); Red Blood Cell Count 4.63 X10^6/uL (4.0-5.2); White Blood Cell Count 8.2 X10^3/uL (4.5-11.0)
[2023-01-10] MEDS: ONDANSETRON 4 MG/2 ML INJ IV ×2 (11:08→13:16)
[2023-01-10] MEDS: SODIUM CHLORIDE 0.9% 1,000 ML 1000 ML IV (11:08)
[2023-01-10 11:17] LABS: Alanine Aminotransferase 50 IU/L (<35); Albumin 4.7 g/dL (3.5-5.0); Albumin Globulin Ratio 1.6 (1.0-2.8); Alkaline Phosphatase 103 U/L (38-126); Aspartate Aminotransferase 65 IU/L (14-36); BUN Creatinine Ratio 13.8 (6-22); Bilirubin Total 7.8 mg/dL (0.2-1.3); Blood Urea Nitrogen 9 mg/dL (7-17); Calcium 9.8 mg/dL (8.4-10.2); Carbon Dioxide 30 mmol/L (22-32); Chloride 93 mmol/L (98-107); Estimated Glomerular Filt Rate > 60 mL/min (>60); Glucose 112 mg/dL (70-100); HEMOLYSIS 18 (0-50); Lipase 47 U/L (23-300); Potassium 2.9 mmol/L (3.4-5.1); Sodium 134 mmol/L (137-145); Total Protein 7.7 g/dL (6.3-8.2)
[2023-01-10 11:22] LABS: Ethanol (ETOH) < 10 mg/dL
--- NOTE | 2023-01-10 11:43 | DI.US.S_ITS ---
PROCEDURE: US ABDOMEN LIMITED INDICATIONS: ELEVATED BILI, VOMITING X 5 DAYS TECHNIQUE: Real-time focused scanning was performed of the abdomen, with image documentation. COMPARISON: [facility], , US ABDOMEN LIMITED, 01/18/2020, 20:49. FINDINGS: Diffuse increased echogenicity of the liver is consistent with diffuse hepatic steatosis. No gallstones or significant gallbladder wall thickening. No dilated ducts. Common bile duct measures 3.8 mm. Visualized portions the pancreas are unremarkable. IMPRESSION: 1. Diffuse hepatic steatosis. 2. No evidence of gallstone disease. Dictated by: Wyatt Daniels M.D. on 01/10/2023 at 12:28 Approved by: Wyatt Daniels M.D. on 01/10/2023 at 12:30
[2023-01-10 11:50] LABS: Influenza A - CEPHEID Flu A NEGATIVE (NEGATIVE); Influenza B - CEPHEID Flu B NEGATIVE (NEGATIVE); Respiratory Syncytial Virus Negative (Negative)
[2023-01-10] MEDS: POTASSIUM CHLORIDE 20 MEQ/15 ML UDC 40 MEQ PO (12:08)
[2023-01-10 12:15] LABS: Acetaminophen < 10 ug/mL (10-30)
[2023-01-10 12:36] LABS: COVID-19 CEPHEID 4-PLEX PCR Negative (Negative)
[2023-01-10 12:50] LABS: Bacteria Urine None Seen; RBC Urine None Seen (0-5/HPF); Renal Epithelial Cells Urine 1-5/HPF (0-1/HPF); Squamous Epithelial Cell Urine 1-5 /HPF (0-5/HPF); Transitional Epi Cells Urine 1-5/HPF (0-5/HPF); WBC Urine 1-5/HPF (0-5/HPF)
[2023-01-10 13:12] LABS: Magnesium 2.1 mg/dL (1.6-2.3)
--- NOTE | 2023-01-10 13:13 | DI.MRI.S_ITS ---
PROCEDURE: MR ABDOMEN WO/W CON INDICATIONS: elevated bili, N/V x5 days TECHNIQUE: Coronal HASTE, axial 2D FLASH in- and [id number]; axial breath-hold T2 FSE with fat saturation from the hepatic dome to the iliac crests. Oblique coronal thin-slice and radial thick slab HASTE through the biliary system. Dynamic axial VIBE during administration of contrast. Post-contrast coronal VIBE or 2D FLASH with fat saturation from the hepatic dome to the iliac crests. Optional diffusion weighted imaging and ADC may be performed. COMPARISON: None. FINDINGS: Image quality: Excellent. Liver: No solid mass. Enlarged, measuring 20.9 cm. Edge blunting present. Signal dropout on the out of phase sequence, consistent with marked hepatic steatosis. Gallbladder/biliary tree: No gallstones or biliary dilation. Spleen: Enlarged, measuring 14.1 cm Pancreas: No ductal dilation. Adrenal glands: No adrenal nodules. Kidneys: No solid mass. No complex renal cysts which requires follow-up. Nodes and vessels: No retroperitoneal or mesenteric adenopathy by size criteria. Aorta and inferior vena cava are normal in size. Bowel and peritoneum: Unenhanced bowel loops are normal in caliber throughout. No free fluid. Small hiatal hernia. Lung bases: No basal pleural effusions. Heart size is normal. Bones and soft tissues: No ventral hernias. Bone marrow is normal in overall signal. IMPRESSION: No biliary dilation or gallbladder pathology. Marked hepatic steatosis. Hepatosplenomegaly. Dictated by: Ramin Vilchis M.D. on 01/10/2023 at 15:43 Approved by: Ramin Vilchis M.D. on 01/10/2023 at 15:47
[2023-01-10] MEDS: LACTATED RINGERS 1,000 ML 1000 ML IV (13:15)
[2023-01-10] MEDS: LORazepam 2 MG/ML INJ 0.5 MG IV ×2 (14:16→14:41)
[2023-01-10 16:43] LABS: Monotest Negative (Negative)
[2023-01-11 03:09] LABS: HBsAg Screen Negative (Negative); Hepatitis A Antibody IgM Negative (Negative); Hepatitis B Core Antibody IgM Negative (Negative); Hepatitis C Antibody Non Reactive (Non Reactive)
== END 2023-01-10 18:21 | disposition home or self-care (01) ==
PROVIDERS: Emergency Provider Student in an Organized Health Care Education/Training Program
DX: E87.6 Hypokalemia (principal); R11.2 Nausea with vomiting, unspecified; R16.0 Hepatomegaly, not elsewhere classified; R16.1 Splenomegaly, not elsewhere classified; R17 Unspecified jaundice; R10.9 Unspecified abdominal pain; Z20.822 Contact with and (suspected) exposure to COVID-19
CPT/HCPCS: 0241U; 36415; 74019; 74183; 76705; 80053; 80074; 80320; 80329; 81003; 81015; 81025; 83690; 83735; 85025; 86318; 87086; 93005; 93010; 96361; 96374; 96375; 96376; 99284; 99285; A9579; G0480; J2060; J2405

== ENCOUNTER 2023-01-14 12:01 | Emergency (ER) | payer BC, SELFPAY ==
[2023-01-14 12:25] VITALS: BP 124/84; PULSE 56; RESP 14; TEMP 36.7; O2SAT 99; BMI 19.2
[2023-01-14 12:54] LABS: Add Manual Diff / Slide Review NO; Basophils Absolute Auto 0 /uL (0-100); Basophils Percent Auto 0.7 % (0-2); Eosinophils Absolute Auto 100 /uL (0-450); Eosinophils Percent Auto 1.1 % (2-4); Hematocrit 42.9 % (36-46); Hemoglobin 15.5 g/dL (12.0-16.0); Lymphocytes Absolute Auto 1800 /uL (1100-4500); Lymphocytes Percent Auto 27.7 % (25-40); Mean Corpuscular HGB Conc 36.1 % (30-36); Mean Corpuscular Hemoglobin 36.9 PG (26-34); Mean Corpuscular Volume 102.1 fL (80-100); Monocytes Absolute Auto 900 /uL (0-900); Monocytes Percent Auto 12.9 % (3-14); Neutrophils Absolute Auto 3800 /uL (1500-7000); Neutrophils Percent Auto 57.6 % (50-75); Platelet Count 227 X10^3/uL (150-400); Red Cell Distribution Width 13.3 % (11.6-14.8); White Blood Cell Count 6.6 X10^3/uL (4.5-11.0)
--- NOTE | 2023-01-14 12:55 | ED_ITS ---
HPI - SOB/Dyspnea <Leyla Aceves PA-C - Last Filed: 01/14/23 14:09> General Chief Complaint: Shortness of Breath/Dyspnea Stated Complaint: SOB, has Asthma Time Seen by Provider: 01/14/23 12:32 Source: patient Mode of arrival: Ambulatory Limitations: no limitations History of Present Illness HPI Narrative: 32-year-old female with past medical history asthma, hepatomegaly, splenomegaly presents to the ED with 1 day of shortness of breath and wheezing. Patient states that she awoke at 3:00 a.m. this morning feeling wheezy and short of breath. Patient stated that her symptoms got significantly worse as the morning progressed and she came into the ED for further evaluation. Patient states that she tried her albuterol inhaler but it did not help. Patient denies fever, chills, chest pain, nausea, vomiting, abdominal pain, dysuria, lightheadedness, dizziness, syncope. Related Data Home Medications Medication Instructions Recorded Confirmed sertraline 50 mg tablet 50 mg PO DAILY 10/22/21 10/22/21 Previous Rx's Medication Instructions Recorded albuterol sulfate 90 mcg/actuation 1 puff inhalation Q4-6H PRN 11/21/18 aerosol inhaler bronchospasm #8 grams diazepam 5 mg tablet (Valium) 5 mg PO TID PRN muscle spasm #10 10/22/21 tabs meloxicam 7.5 mg tablet 7.5 mg PO BID PRN pain #14 tabs 10/22/21 albuterol sulfate 2.5 mg/0.5 mL 5 mg inhalation Q6H PRN shortness 01/14/23 solution for nebulization of breath or wheezing #30 ea Allergies Allergy/AdvReac Type Severity Reaction Status Date / Time [employer] And Derivatives Allergy Unknown Verified 10/22/21 18:39 [CITRUS AND DERIVATIVES] peanut [PEANUT] Allergy Unknown Verified 10/22/21 18:39 Review of Systems <Leyla Aceves PA-C - Last Filed: 01/14/23 14:09> Review of Systems ROS Unobtainable: All systems reviewed & are unremarkable except as noted in HPI and below Constitutional Constitutional: Denies chills, Denies fatigue, Denies fever(s), Denies frequent falls, Denies lethargy and Denies weakness Eyes Eyes: Denies change in vision, Denies eye discharge, Denies irritation and Denies loss of vision ENT Ears, Nose, Mouth, and Throat: Denies change in voice, Denies dizziness, Denies neck pain, Denies sore throat and Denies throat swelling Cardiovascular Cardiovascular: Denies chest pain, Denies irregular heart rhythm, Denies lightheadedness, Denies palpitations, Reports dyspnea, Denies dyspnea on exertion and Denies orthopnea Respiratory Respiratory: Denies cough, Reports dyspnea, Denies dyspnea on exertion and Reports wheezing Gastrointestinal Gastrointestinal: Denies abdominal pain, Denies change in bowel habits, Denies diarrhea, Denies nausea and Denies vomiting Genitourinary Genitourinary: Denies hematuria, Denies flank pain, Denies urinary incontinence and Denies urinary urgency Musculoskeletal Musculoskeletal: Denies back pain, Denies muscle weakness, Denies neck pain, Denies numbness and Denies tingling Integumentary/Breasts Skin/Breast: Denies pruritus, Denies erythema, Denies rash and Denies wounds Neurologic Neurologic: Denies behavioral changes, Denies confusion, Denies dizziness, Denies frequent falls, Denies loss of vision, Denies numbness, Denies tingling and Denies weakness Psychiatric Psychiatric: Denies anxiety, Denies behavioral changes, Denies confusion, Denies depression, Denies homicidal ideation and Denies suicidal ideation Endocrine Endocrine: Denies fatigue, Denies flushing and Denies palpitations Hematologic/Lymphatic Hematologic/Lymphatic: Denies easy bruising Allergic/Immunologic Allergic/Immunologic: Denies urticaria, Denies throat swelling and Reports wheezing Patient History <Leyla Aceves PA-C - Last Filed: 01/14/23 14:09> Medical History Asthma exacerbation Upper GI bleeding Social History Smoking Status: Never smoker Smoking Status: Never smoker alcohol intake frequency: other Alcohol type: beer Substance Use Type: marijuana Exam <Leyla Aceves PA-C - Last Filed: 01/14/23 14:09> Narrative Exam Narrative: Const General:?cooperative, healthy appearing and comfortable [facility] Head:?normal to inspection Ears:?hearing grossly normal bilaterally Nose:?external nose normal Face and sinus:?normal facial exam and sinuses nontender Mouth:?oral mucosae normal Throat:?posterior oropharynx normal Eyes General:?appearance normal, both eyes and all related structures Neck Neck:?normal visual inspection and no lymphadenopathy noted Resp Effort & Inspection:?normal respiratory effort Auscultation:?clear to auscultation bilaterally Cardio Rate:?regular rate Rhythm:?regular rhythm Neuro General:?patient alert, patient awake and patient oriented x3 Initial Vital Signs Initial Vital Signs: Vital Signs Temperature 98.1 F 01/14/23 12:25 Pulse Rate 56 L 01/14/23 12:25 Respiratory Rate 14 01/14/23 12:25 Blood Pressure 124/84 01/14/23 12:25 Pulse Oximetry 99 01/14/23 12:25 Oxygen Delivery Method Room Air 01/14/23 12:25 <Ruma Sanchez DO - Last Filed: 01/20/23 14:25> Initial Vital Signs Initial Vital Signs: Vital Signs Temperature 98.1 F 01/14/23 12:25 Pulse Rate 56 L 01/14/23 12:25 Respiratory Rate 14 01/14/23 12:25 Blood Pressure 124/84 01/14/23 12:25 Pulse Oximetry 99 01/14/23 12:25 Oxygen Delivery Method Room Air 01/14/23 12:25 Course <Leyla Aceves PA-C - Last Filed: 01/14/23 14:09> Orders Ordered: Discontinued Medications Albuterol/Ipratropium (Albuterol/Ipratropium 3 Ml Ampul) 3 ml INH NOW ONE Stop: 01/14/23 13:38 Last Admin: 01/14/23 13:40 Dose: 3 ml Documented By: GLENN Vital Signs Vital signs: Vital Signs - 8 hr 01/14/23 12:25 Temperature 98.1 F Pulse Rate 56 L Respiratory Rate 14 Blood Pressure 124/84 Pulse Oximetry 99 Oxygen Delivery Method Room Air <Ruma Sanchez DO - Last Filed: 01/20/23 14:25> Orders Ordered: Discontinued Medications Albuterol/Ipratropium (Albuterol/Ipratropium 3 Ml Ampul) 3 ml INH NOW ONE Stop: 01/14/23 13:38 Last Admin: 01/14/23 13:40 Dose: 3 ml Documented By: GLENN Vital Signs Vital signs: Vital Signs - 8 hr 01/14/23 12:25 Temperature 98.1 F Pulse Rate 56 L Respiratory Rate 14 Blood Pressure 124/84 Pulse Oximetry 99 Oxygen Delivery Method Room Air MDM - SOB/Dyspnea <Leyla Aceves PA-C - Last Filed: 01/14/23 14:09> Lab Data 01/14/23 12:42 01/14/23 12:42 Labs: Lab Results 01/14/23 01/14/23 Range/Units 12:42 12:42 WBC 6.6 (4.5-11.0) X10^3/uL RBC 4.20 (4.0-5.2) X10^6/uL Hgb 15.5 (12.0-16.0) g/dL Hct 42.9 (36-46) % MCV 102.1 H (80-100) fL MCH 36.9 H (26-34) PG MCHC 36.1 H (30-36) % RDW 13.3 (11.6-14.8) % Plt Count 227 (150-400) X10^3/uL Neut % (Auto) 57.6 (50-75) % Lymph % (Auto) 27.7 (25-40) % [place] % (Auto) 12.9 (3-14) % Eos % (Auto) 1.1 L (2-4) % Baso % (Auto) 0.7 (0-2) % Neut # (Auto) 3800 (7623-7900) /uL Lymph # (Auto) 1800 (9624-7720) /uL [place] # (Auto) 900 (0-900) /uL Eos # (Auto) 100 (0-450) /uL Baso # (Auto) 0 (0-100) /uL Sodium 133 L (137-145) mmol/L Potassium 3.2 L (3.4-5.1) mmol/L Chloride 96 L (98-107) mmol/L Carbon Dioxide 30 (22-32) mmol/L BUN 8 (7-17) mg/dL Creatinine 0.63 (0.52-1.04) mg/dL Estimated GFR > 60 (>60) mL/min BUN/Creatinine Ratio 12.7 (6-22) Glucose 91 (70-100) mg/dL Calcium 9.2 (8.4-10.2) mg/dL Total Bilirubin 7.4 H (0.2-1.3) mg/dL AST 60 H (14-36) IU/L ALT 56 H (<35) IU/L Alkaline Phosphatase 69 (38-126) U/L Total Protein 6.8 (6.3-8.2) g/dL Albumin 4.2 (3.5-5.0) g/dL Globulin 2.6 (1.7-4.1) g/dL Albumin/Globulin Ratio 1.6 (1.0-2.8) MDM Narrative Medical decision making narrative: 32-year-old female with past medical history asthma, hepatomegaly, splenomegaly presents to the ED with 1 day of shortness of breath and wheezing. Concern for asthma exacerbation. Patient's symptoms improved with albuterol/ipratropium. Patient has a albuterol rescue inhaler. Patient agrees to follow-up with her PCP for maintenance medications for the asthma. Patient continues to have a high bilirubin consistent with her last visit in the ED on 01/10/2023, however has no symptoms. Potassium low at 3.2, likely due to albuterol use. 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 ED return precautions discussed with patient. Patient verbalized understanding. Medical records reviewed: Yes <Ruma Sanchez DO - Last Filed: 01/20/23 14:25> Lab Data Labs: Lab Results 01/14/23 01/14/23 Range/Units 12:42 12:42 WBC 6.6 (4.5-11.0) X10^3/uL RBC 4.20 (4.0-5.2) X10^6/uL Hgb 15.5 (12.0-16.0) g/dL Hct 42.9 (36-46) % MCV 102.1 H (80-100) fL MCH 36.9 H (26-34) PG MCHC 36.1 H (30-36) % RDW 13.3 (11.6-14.8) % Plt Count 227 (150-400) X10^3/uL Neut % (Auto) 57.6 (50-75) % Lymph % (Auto) 27.7 (25-40) % [place] % (Auto) 12.9 (3-14) % Eos % (Auto) 1.1 L (2-4) % Baso % (Auto) 0.7 (0-2) % Neut # (Auto) 3800 (2432-6573) /uL Lymph # (Auto) 1800 (1337-9100) /uL [place] # (Auto) 900 (0-900) /uL Eos # (Auto) 100 (0-450) /uL Baso # (Auto) 0 (0-100) /uL Sodium 133 L (137-145) mmol/L Potassium 3.2 L (3.4-5.1) mmol/L Chloride 96 L (98-107) mmol/L Carbon Dioxide 30 (22-32) mmol/L BUN 8 (7-17) mg/dL Creatinine 0.63 (0.52-1.04) mg/dL Estimated GFR > 60 (>60) mL/min BUN/Creatinine Ratio 12.7 (6-22) Glucose 91 (70-100) mg/dL Calcium 9.2 (8.4-10.2) mg/dL Total Bilirubin 7.4 H (0.2-1.3) mg/dL AST 60 H (14-36) IU/L ALT 56 H (<35) IU/L Alkaline Phosphatase 69 (38-126) U/L Total Protein 6.8 (6.3-8.2) g/dL Albumin 4.2 (3.5-5.0) g/dL Globulin 2.6 (1.7-4.1) g/dL Albumin/Globulin Ratio 1.6 (1.0-2.8) Discharge Plan Departure Patient Disposition: Home Clinical Impression: SOB (shortness of breath) Instructions: DI for Shortness of Breath Activity Restrictions/Additional Instructions: You were evaluated in the ED today for shortness of breath and wheezing. Your symptoms significantly improved with a nebulizer treatment of albuterol and ipratropium. Please continue to use your albuterol inhaler as needed. Please also follow-up with your PCP for maintenance asthma medications. Return to the ED if you have worsening wheezing, shortness of breath, chest pain. Prescriptions: New albuterol sulfate 2.5 mg/0.5 mL solution for nebulization 5 mg inhalation Q6H PRN (Reason: shortness of breath or wheezing) Qty: 30 0RF No Action albuterol sulfate 90 mcg/actuation HFA aerosol inhaler 1 puff INHALATION Q4-6H PRN (Reason: bronchospasm) Qty: 8 0RF sertraline 50 mg Tablet 50 mg PO DAILY meloxicam 7.5 mg tablet 7.5 mg PO BID PRN (Reason: pain) Qty: 14 0RF diazepam [Valium] 5 mg tablet 5 mg PO TID PRN (Reason: muscle spasm) Qty: 10 0RF Referrals: Miscellaneous,Doctor, MD [Primary Care Provider] - Stand Alone Forms: Patient Portal/API <Ruma Sanchez DO - Last Filed: 01/20/23 14:25> Cosign ED Attending Coslanaature Attestation: I was immediately available in the department for consultation. Documentation has been reviewed.
[2023-01-14 13:33] LABS: Alanine Aminotransferase 56 IU/L (<35); Albumin 4.2 g/dL (3.5-5.0); Albumin Globulin Ratio 1.6 (1.0-2.8); Alkaline Phosphatase 69 U/L (38-126); Aspartate Aminotransferase 60 IU/L (14-36); BUN Creatinine Ratio 12.7 (6-22); Bilirubin Total 7.4 mg/dL (0.2-1.3); Blood Urea Nitrogen 8 mg/dL (7-17); Calcium 9.2 mg/dL (8.4-10.2); Carbon Dioxide 30 mmol/L (22-32); Chloride 96 mmol/L (98-107); Estimated Glomerular Filt Rate > 60 mL/min (>60); Globulin 2.6 g/dL (1.7-4.1); Glucose 91 mg/dL (70-100); HEMOLYSIS < 15 (0-50); Potassium 3.2 mmol/L (3.4-5.1); Sodium 133 mmol/L (137-145); Total Protein 6.8 g/dL (6.3-8.2)
[2023-01-14] MEDS: ALBUTEROL/IPRATROPIUM 3 ML AMPUL INH (13:40)
[2023-01-14 14:12] VITALS: BP 141/93; PULSE 51; RESP 16; O2SAT 100
== END 2023-01-14 14:15 | disposition home or self-care (01) ==
PROVIDERS: Emergency Provider Student in an Organized Health Care Education/Training Program
DX: R06.02 Shortness of breath (principal); R06.2 Wheezing
CPT/HCPCS: 36415; 80053; 85025; 94640; 99283